=== PATIENT | male | born 1965 | race Caucasian/White ===

== ENCOUNTER 2023-09-13 11:30 | Emergency (ER) | payer OTHER, SELFPAY ==
--- NOTE | 2023-09-13 | CT_ITS ---
[address] [address] Patient Name: JERRELL MOORE MRN: [id number] date: 1965 Sex: M Assigned Patient Location: ER Current Patient Location: Accession/Order Number: [id number] Exam Date: 09/13/2023 13:45 Report Date: 09/13/2023 15:12 At the request of: CHARLI LOWE Procedure: CT abdomen pelvis w con EXAM: CT abdomen pelvis w con HISTORY: Abd pain. Colon cancer. Diarrhea for 3 days. COMPARISON: 01/13/2022. 03/14/2018. TECHNIQUE: Enhanced helical acquisition obtained through the abdomen and pelvis following the administration of oral and intravenous contrast. FINDINGS: Severe calcifications of the included right coronary artery. Minimal pulmonary scarring within the lung bases. The pleural spaces are clear. Unremarkable gallbladder. No significant biliary ductal dilatation. The liver, spleen, pancreas are unremarkable. Stable mild thickening of the bilateral adrenal glands which may be secondary to adrenal hyperplasia. Bilateral subcentimeter nonobstructing renal calculi. Moderate-severe atherosclerotic disease. Stable mild fusiform aneurysmal dilatation of the infrarenal abdominal aorta maximally measuring 3.1 cm in maximum diameter. No enlarged lymph nodes within the abdomen or the pelvis. Small volume of ascites within the abdomen and the pelvis. Scattered air-fluid levels are present within small and large bowel, compatible with the stated history of diarrhea. Diverticulosis without radiographic evidence of diverticulitis. Prior right hemicolectomy with intact ileocolonic anastomosis. No definite bowel obstruction. Mild mesenteric edema within the right mid abdomen. Prior L5-S1 PLIF. CT/CT abdomen pelvis w con IMPRESSION: 1. Scattered air-fluid levels throughout small and large bowel, compatible with the given clinical history of diarrhea. 2. Prior right hemicolectomy with intact ileocolonic anastomosis. No definite bowel obstruction. Mildly distended small bowel loops within the right mid abdomen with mild mesenteric edema, which may be secondary to an underlying mild infectious or inflammatory enteritis. 3. Small volume of ascites. 4. Bilateral subcentimeter nonobstructing renal calculi. Stable mild thickening of the adrenal glands which may be secondary to hyperplasia. 5. Severe calcifications of the partially visualized right coronary artery. Moderate-severe atherosclerotic disease with stable 3.1 cm infrarenal abdominal aortic aneurysm. Electronically authenticated by: HORACIO SALAZAR Date: 09/13/2023 15:12
[2023-09-13 11:36] VITALS: BP 123/77; PULSE 86; TEMP 36.8; O2SAT 99; BMI 27.4
--- NOTE | 2023-09-13 12:00 | ED.ABDPAIN1 ---
HPI - Abdominal Pain General Chief Complaint: Nausea/Vomiting/Diarrhea Stated Complaint: ABDOMINAL PAIN Time Seen by Provider: 09/13/23 11:54 Source: patient Mode of arrival: walk-in History of Present Illness HPI narrative: This for she is here for evaluation of abdominal cramping pain and diarrhea. He has had a lot of watery diarrhea for the last 3 days. He has not looked at it to see if was black or bloody. He has had previous colon resection for cancer at the [facility] in [facility]. He has not had his 1 year routine follow-up yet. Also last week he underwent coronary stenting in [place] and got another stent. Prior to that time he had had 2 or 3 previously. He is on Brilinta. He also thought that he had a kidney stone as all the symptoms started with left flank pain and now he has severe abdominal pain in addition to the diarrhea. He has intense nausea but no vomiting. He has not having a fever. He has not been on any recent antibiotics. He never had a colostomy at the time of the surgical incision. Related Data Home Medications ?Medication ?Instructions ?Recorded ?Confirmed albuterol sulfate 90 mcg/actuation 2 puff inhalation Q4H PRN 09/13/23 09/13/23 aerosol inhaler shortness of breath or wheezing amlodipine 5 mg tablet 5 mg PO DAILY 09/13/23 09/13/23 aspirin 81 mg tablet,delayed 81 mg PO DAILY 09/13/23 09/13/23 release (Adult Low Dose Aspirin) atorvastatin 40 mg tablet 40 mg PO QPM 09/13/23 09/13/23 carvedilol 25 mg tablet 25 mg PO BID 09/13/23 09/13/23 cyclobenzaprine 10 mg tablet 10 mg PO QPM PRN muscle spasm 09/13/23 09/13/23 lisinopril 40 mg tablet 40 mg PO QAM 09/13/23 09/13/23 pantoprazole 40 mg tablet,delayed 40 mg PO BID 09/13/23 09/13/23 release pramipexole 0.25 mg tablet 0.25 mg PO BID 09/13/23 09/13/23 sildenafil (pulm.hypertension) 20 40 mg PO DAILY PRN erectile 09/13/23 09/13/23 mg tablet dysfunction ticagrelor 90 mg tablet (Brilinta) 90 mg PO BID 09/13/23 09/13/23 vilazodone 40 mg tablet 40 mg PO DAILY 09/13/23 09/13/23 Allergies Allergy/AdvReac Type Severity Reaction Status Date / Time Penicillins Allergy Severe Verified 09/13/23 11:41 Exam Narrative Exam Narrative: Awake alert pleasant vital signs are normal. Does not have any chest discomfort but points to his periumbilical area as being uncomfortable. His skin is warm and dry his mucous membranes appear moist and pink. There is no scleral icterus or conjunctivitis. Examination abdomen is got normal bowel sounds there is diffuse tenderness throughout the periumbilical area. No rebound or rigidity. Incidentally he has been told that he also had diverticular disease previously. He has no respiratory distress. His pulse is regular. Does not have any discomfort in the lower extremities and his perfusion to lower limbs appears to be normal Constitutional Vital Signs, click to edit/add: Last Vital Signs Temp 98.2 F 09/13/23 11:36 Pulse 86 09/13/23 11:36 Resp 16 09/13/23 11:36 BP 123/77 09/13/23 11:36 Pulse Ox 99 09/13/23 11:36 O2 Del Method Room Air 09/13/23 11:36 Course Vital Signs Vital signs: Vital Signs Temperature 98.2 F 09/13/23 11:36 Pulse Rate 86 09/13/23 11:36 Respiratory Rate 16 09/13/23 11:36 Blood Pressure 123/77 09/13/23 11:36 Pulse Oximetry 99 09/13/23 11:36 Oxygen Delivery Method Room Air 09/13/23 11:36 Temperature 98.2 F 09/13/23 11:36 Pulse Rate 86 09/13/23 11:36 Respiratory Rate 16 09/13/23 11:36 Blood Pressure 123/77 09/13/23 11:36 Pulse Oximetry 99 09/13/23 11:36 Oxygen Delivery Method Room Air 09/13/23 11:36 MDM - Abdominal Pain MDM Narrative Medical decision making narrative: This patient presents with 3 days of diarrhea after having colon resection. I thought it would be important to image the abdomen and make sure he does not have a comorbidities or other complications of the surgical procedure. The CT scan report was read at 1535 hrs. and there is no acute findings. We went over the details of the CT with the patient. He is known to have infrarenal artery aneurysm. He also has had stents in his right coronary artery so none of this is new. The abdominal findings suggest gastroenteritis. He is now cleared to use limited doses of Imodium, stay hydrated with fluids. Discharge Plan Discharge Stand Alone Forms: Portal Instructions Chief Complaint: Nausea/Vomiting/Diarrhea Clinical Impression: Abdominal pain, acute Patient Disposition: Home, Self-Care Time of Disposition Decision: 15:40 Prescriptions / Home Meds: No Action albuterol sulfate 90 mcg/actuation HFA aerosol inhaler 2 puff INHALATION Q4H PRN (Reason: shortness of breath or wheezing) amlodipine 5 mg tablet 5 mg PO DAILY atorvastatin 40 mg tablet 40 mg PO QPM carvedilol 25 mg tablet 25 mg PO BID cyclobenzaprine 10 mg tablet 10 mg PO QPM PRN (Reason: muscle spasm) lisinopril 40 mg tablet 40 mg PO QAM pantoprazole 40 mg tablet,delayed release (DR/EC) 40 mg PO BID pramipexole 0.25 mg tablet 0.25 mg PO BID sildenafil (pulm.hypertension) 20 mg tablet 40 mg PO DAILY PRN (Reason: erectile dysfunction) Brilinta 90 mg tablet 90 mg PO BID vilazodone 40 mg tablet 40 mg PO DAILY aspirin [Adult Low Dose Aspirin] 81 mg tablet,delayed release (DR/EC) 81 mg PO DAILY Print Language: Kenyan Additional Instructions: A use [id number] Imodium for couple days. Continue clear fluids to this improves. Referrals: Physician,Non-Staff, MD [Primary Care Provider] - 1 week
[2023-09-13 12:28] VITALS: BP 128/88; PULSE 82; O2SAT 98
[2023-09-13 14:15] VITALS: BP 148/83; PULSE 88; O2SAT 98
== END 2023-09-13 15:49 | disposition home or self-care (01) ==
PROVIDERS: Emergency Provider Emergency Medicine Emergency Medical Services
DX: R10.9 Unspecified abdominal pain (principal); Z90.49 Acquired absence of other specified parts of digestive tract; Z85.038 Personal history of other malignant neoplasm of large intestine; Z95.5 Presence of coronary angioplasty implant and graft; Z79.82 Long term (current) use of aspirin; Z79.899 Other long term (current) drug therapy
CPT/HCPCS: 74177; 80053; 99285; Q9967

== ENCOUNTER 2024-08-04 12:39 | Outpatient (OUT) | payer OTHER, SELFPAY ==
--- NOTE | 2024-08-04 13:00 | XR_ITS ---
[facility] [place] [id number] Patient Name: JERRELL MOORE MRN: [id number] date: 1965 Sex: M Assigned Patient Location: LAB Current Patient Location: LAB Accession/Order Number: [id number] Exam Date: 08/04/2024 17:06 Report Date: 08/04/2024 17:07 At the request of: CHASE VIZCARRA MD Procedure: XR lumbar spine min 4V LUMBAR SPINE - 4 views CLINICAL HISTORY: Chronic Bilateral Low Back Pain With Sciatica COMPARISON: None FINDINGS: Posterior hardware fixation L5-S1 without evidence of hardware complication. Vertebral body heights appear maintained. No significant disc height loss is present. Endplate and facet joint degenerative changes are seen. SI joints demonstrate degenerative change. XR/XR lumbar spine min 4V IMPRESSION: NO HARDWARE COMPLICATION. DEGENERATIVE CHANGES INVOLVING THE ENDPLATES AND SI JOINTS WITHOUT SIGNIFICANT DISC HEIGHT LOSS. Impression dictated by: Luis Rosenthal Jr., D.O.08/04/2024 5:07 PM Dictation Location: [employer] Electronically authenticated by: [id number] Y Date: 08/04/2024 17:07
[2024-08-04 13:38] LABS: Alanine Aminotransferase 45 U/L (16-63); Albumin Level 3.6 g/dL (3.4-5.0); Alkaline Phosphatase 102 U/L (46-116); Anion Gap 10.5; Aspartate Amino Transferase 23 U/L (15-37); BUN Creatinine Ratio 18.4; Bilirubin Total 0.7 mg/dL (0.2-1.0); Calcium 9.1 mg/dL (8.5-10.1); Carbon Dioxide 28.3 mmol/L (21.0-32.0); Chloride 105 mmol/L (98-107); Chol HDL Ratio 3.8; Cholesterol 158 mg/dL (<=200); Estimated GFR (African America >60 (>=60 mL/min/1.73m^2); Estimated GFR (Non-African Ame >60 (>=60 mL/min/1.73m^2); Globulin 3.6 g/dL; Glucose 84 mg/dL (74-106); HDL Cholesterol 42 mg/dL (40-60); LDL Cholesterol Calculated 90.6 mg/dL; Potassium 3.8 mmol/L (3.5-5.1); Sodium 140 mmol/L (136-145); TSH W/ REFLEX FT4 1.431 uIU/mL (0.358-3.740); Total Protein 7.2 g/dL (6.4-8.2); Triglycerides 127 mg/dL (<=150); VLDL CHOLESTEROL 25.4 mg/dL
== END 2024-08-04 12:40 | disposition home or self-care (01) ==
LOC: LAB 12:43
PROVIDERS: PCP Student in an Organized Health Care Education/Training Program; Visit Provider Student in an Organized Health Care Education/Training Program
DX: M54.42 Lumbago with sciatica, left side (principal); M54.41 Lumbago with sciatica, right side; G89.29 Other chronic pain; I25.118 Atherosclerotic heart disease of native coronary artery with other forms of angina pectoris
CPT/HCPCS: 36415; 72110; 80053; 80061; 84443

== ENCOUNTER 2024-12-01 14:30 | Outpatient (OUT) | payer OTHER, SELFPAY ==
--- OUTSIDE RECORDS SUMMARY | 2024-11-19 14:00 | XMS_ITS | Encounter Summary ---
Author Organization [facility] Address [address] [place] [address] Care Team Providers Care Tap Out Operator Name Role Phone Tashalamar Yamilkatani Lacy DO Primary Care Provider [phone] Reason for Visit * Reason Comments Leg Swelling Bilateral leg swelli ng and pain started 7 months ago. Encounter Details Date Type Department Care Team (Late st Contact Info) Description 11/19/2024 2:00 PM EDT Office [place] [facility] [place] [address] [place] [address] Montez Alexander DO [address] [place] [address] Bilateral lower extremity edema (Primary Dx); Venous stasis of both lower extremities; Hemangioma of skin Social History Tobacco Use Types Packs/Day Years Used Date Smoking Tobacco: Every Day Cigarettes 1 15 Smokeless Tobacco: Never Tobacco Cessation:Ready to Q uit: Not Asked; Counseling Given: Not Answered Alcohol Use Standard Drinks/Week Comments Yes 0 (1 standard drink = 0.6 oz pur e alcohol) [facility] Utilities Answer Date Recorded In the past 12 months has [employer], gas, oil, or water company threatened to shut off services in your home? No 07/28/2024 AUDIT-C Answer Date Recorded Q1: How often do you have a drink containing alc ohol? Monthly or less 07/28/2024 Q2: How many drinks containi ng alcohol do you have on a typical day when you are drinking? 1 or 2 07/28/2024 Q3: How often do you have si x or more drinks on one occasion? Never 07/28/2024 Overall Financial Resource Strain (CARDIA) Answe r Date Recorded How hard is it for you to pa y for the very basics like food, housing, medical care, and heating? Not hard at all 07/20/2023 PHQ-2 Answer Date Recorded PHQ-9 Total Score 0 07/28/2024 Exercise Vital Sign Answer Date Recorde d On average, how many days pe r week do you engage in moderate to strenuous exercise (like a brisk walk)? 4 days 07/28/2024 On average, how many minutes do you engage in exercise at this level? 60 min 07/28/2024 Hunger Vital Sign Answer Date Recorded Within the past 12 months, y ou worried that your food would run out before you got the money to buy more. Never true 07/28/19 25 Within the past 12 months, t he food you bought just didn't last and you didn't have money to get more. Never true 07/28/2024 PRAPARE - Transportation Answer Date Re corded In the past 12 months, has l ack of transportation kept you from medical appointments or from getting medications? No 07/06 In the past 12 months, has l ack of transportation kept you from meetings, work, or from getting things needed for daily living? No 07/28/2024 Housing Stability Vital Sign Answer Bk e Recorded Unable to Pay for Housing in the Last Year Not o n file 07/20/2023 Number of Places Lived in the Last Year Not on f ile 07/20/2023 In the last 12 months, was t here a time when you did not have a steady place to sleep or slept in a alf (including now)? No 07/20/2023 Housing Stability Vital Sign Answer Bk e Recorded In the last 12 months, was t here a time when you were not able to pay the mortgage or rent on time? No 07/28/2024 In the past 12 months, how m any times have you moved where you were living? 0 07/28/2024 At any time in the past 12 m [facility], were you homeless or living in a alf (including now)? No 07/28/2024 Food Insecurity Answer Date Recorded Within the past 12 months, y ou worried that your food would run out before you got the money to buy more. 1 07/28/2024 Within the past 12 months, t he food you bought just didn't last and you didn't have money to get more. 1 07/28/2024 Sex and Gender Information Value Date Recorded Sex Assigned at Not on file Legal Sex Male 10:06 AM EST Gender Identity Not on file Sexual Orientation Not on file documented as of this encounter Last Filed Vital Signs Vital Sign Reading Time Taken Comments Blood Pressure 146/80 11/19/2024 2:03 PM EDT Pulse 85 11/19/2024 2:03 PM EDT Temperature - - Respiratory Rate - - Oxygen Saturation 96% 11/19/2024 2:03 PM EDT Inhaled Oxygen Concentration - - Weight 82.6 kg (182 lb) 11/19/2024 2:03 PM EDT Height - - Body Mass Index 28.5 08/20/2024 1:22 PM EDT documented in this encounter Patient Instructions * Patient Instructions* Hailey May LPN - 11/19/2024 2:06 PM EDT SURVEY: You may be receiving a survey from [place] [facility] regarding your visit today. You may get this in the mail, through your MyChart or in your email. Please complete the survey to enable us to provide the highest quality of care to you and your family. If you cannot score us as very good ( 5 Stars) on any question, please feel free to call the officeto discuss how we could have made your experience exceptional. Thank you. Clinical Care Team: Dr. Montez Alexander, DO Hailey May LPN Triage: Lottie Sow CMA Clerical Team: Lottie Huerta documented in this encounter Progress Notes * Yamilka Thomas DO - 11/20/2024 8:06 AM EDT Olu Vanegas! I believe this is the site where I actually had previously tried to remove a suspected foreign body and wasn't successful. So I would recommend he see a surgeon about it. Thanks! Yamilka * Montez Alexander DO - 11/19/2024 2:03 PM EDT Images from the original note were not included. HPI Notes Name: Homero Rodrigues : 1965 Chief Complaint: Chief Complaint Patient presents with Leg Swelling Bilateral leg swelling and pain started 7 months ago. History of Present Illness: HPI This is a 59-year-old man with a history of coronary artery disease, hypertension, presenting for bilateral lower extremity edema and pain which began around 7 months ago. He had been prescribed furosemide 20 mg p.o. daily as needed for swelling but reports this had not not made much appreciable dif ference over the past several months. He did call his early childhood specialist yesterday and they have ordered outpatient labs. Homero notes that this swelling is not present upon awakening in the morning and does worsen throughout the day the more he stands (works at [employer] about 5 hours at a time). He also notes that the shins have been somewhat discolored and darker as of late. He also notes a sensitive and mildly painful lesion of the skin of the right forearm. This has beenpresent for over a year and he is desiring it to be removed as it bothers him when something touches it. It has not bled. Past Medical History: Past Medical History: Diagnosis Date Anxiety Chronic back pain Colon cancer (HCC) 10/25/2022 Depression Erectile dysfunction Heart attack (HCC) 2015 Stent placement Hypertension Osteoarthritis Restless legs syndrome Sleep apnea Reviewed all health maintenance requirements and ordered appropriate tests Health Maintenance Due Topic Date Due HIV screen Never done Hepatitis C screen Never done Hepatitis B vaccine (1 of 3 - 19+ 3-dose series) Never done Pneumococcal 50+ years Vaccine (1 of 2 - PCV) Never done Shingles vaccine (1 of 2) Never done COVID-19 Vaccine (2023- season) 2024 Past Surgical History: Past Surgical History: Procedure Laterality Date COLECTOMY 10/25/2022 partial LUMBAR FUSION 2009 L5 SUBTOTAL COLECTOMY Medications: Prior to Admission medications Medication Sig Start Date End Date Taking? Authorizing Provider cyclobenzaprine (FLEXERIL) 10 MG tablet TAKE 1 TABLET BY MOUTH EVERY NIGHT NEEDED FOR MUSCLE SPASM 09/15/24 Yes Maria G Montana MD vilazodone HCl (VIIBRYD) 20 MG TABS TAKE 1 TABLET BY MOUTH EVERY DAY 09/15/24 Yes Maria G Montana MD pantoprazole (PROTONIX) 40 MG tablet TAKE 1 TABLET BY MOUTH TWICE A DAY 09/01/24 Yes Tiago Thomas DO furosemide (LASIX) 20 MG tablet TAKE 1 TABLET BY MOUTH DAILY NEEDED (SWELLING). 09/01/24 Yes Yamilka Thomas DO sildenafil (REVATIO) 20 MG tablet TAKE 3 TO 5 TABLETS BY MOUTH DAILY NEEDED FOR E.D. 08/25/24 Yamilka Lima DO atorvastatin (LIPITOR) 40 MG tablet Take 1 tablet by mouth nightly 08/22/24 Yes Yamilka Thomas DO pramipexole (MIRAPEX) 0.75 MG tablet TAKE 1-2 TABLETS BY MOUTH 2-3 HOURS BEFORE BEDTIME 08/20/24 Yamilka Lima DO valsartan (DIOVAN) 160 MG tablet Take 1 tablet by mouth daily 07/16/24 07/16/25 Yes ProviderChad MD KLOR-CON M20 20 MEQ extended release tablet TAKE 1 TABLET BY MOUTH EVERY DAY 04/07/24 Yes Yamilka Thomas DO amLODIPine (NORVASC) 5 MG tablet Take 1 tablet by mouth daily 11/18/23 Yes ProviderChad MD clopidogrel (PLAVIX) 75 MG tablet Take 1 tablet by mouth daily 11/24/23 Yes ProviderChad MD albuterol sulfate HFA (PROVENTIL;VENTOLIN;PROAIR) 108 (90 Base) MCG/ACT inhaler INHALE 2 PUFFS BY MOUTH EVERY 4 HOURS NEEDED FOR SHORTNESS OF BREATH 07/16/23 Yes Yamilka Thomas DO carvedilol (COREG) 25 MG tablet TAKE 1 TABLET BY MOUTH TWICE A DAY 01/04/21 Yes ProviderChad MD nitroGLYCERIN (NITROSTAT) 0.[address] 1 tablet under the tongue 09/26/13 Yes Provider, MD Chad clonazePAM (KLONOPIN) 0.5 MG tablet Take 1-2 tablets by mouth nightly as needed (restless legs) forup to 90 days. Max Daily Amount: 1 mg 08/20/24 11/18/24 Yamilka Thomas DO Allergies: Levofloxacin and Penicillins Social History: Tobacco: reports that he has been smoking cigarettes. He has a 15 pack-year smoking history. He hasnever used smokeless tobacco. Alcohol: reports current alcohol use. Drug Use: reports no history of drug use. Family History: Family History Problem Relation Age of Onset Heart Attack Mother Cancer Father colon Heart Attack Father Colon Cancer Sister Review of Systems: Review of Systems Constitutional: Negative for fever. HENT: Negative for sinus pain, sneezing and sore throat. Respiratory: Negative for cough and wheezing. Cardiovascular: Positive for leg swelling. Negative for chest pain. Gastrointestinal: Negative for abdominal pain, diarrhea, nausea and vomiting. Genitourinary: Negative for difficulty urinating, dysuria and penile discharge. Musculoskeletal: Negative for back pain. Skin: Negative for rash. +lesion per HPI Hematological: Negative for adenopathy. Psychiatric/Behavioral: Negative for sleep disturbance. Physical Exam: Vitals: BP (!) 146/80 Pulse 85 Wt 82.6 kg (182 lb) SpO2 96% BMI 28.50 kg/m?? Physical Exam Vitals and nursing note reviewed. Constitutional: General: He is not in acute distress. Appearance: Normal appearance. Musculoskeletal: General: Swelling present. No tenderness. Normal range of motion. Comments: Trace nonpitting edema bilaterally of the lower extremities Skin: General: Skin is warm and dry. Capillary Refill: Capillary refill takes less than 2 seconds. Comments: Brawny skin discoloration of the anterior tibiae Right forearm: 3 mm round, soft, bluish subcutaneous lesion which is mildly uncomfortable to palpate Neurological: General: No focal deficit present. Mental Status: He is alert and oriented to person, place, and time. Mental status is at baseline. Psychiatric: Mood and Affect: Mood normal. Behavior: Behavior normal. Thought Content: Thought content normal. Data: Lab Results Component Value Date/Time NA 140 08/04/2024 12:00 AM K 3.8 08/04/2024 12:00 AM CL 105 08/04/2024 12:00 AM CO2 28.3 08/04/2024 12:00 AM BUN 16 09/17/2024 01:24 PM CREATININE 0.8 09/17/2024 01:24 PM GLUCOSE 84 08/04/2024 12:00 AM BILITOT 0.7 08/04/2024 12:00 AM ALKPHOS 102 08/04/2024 12:00 AM AST 23 08/04/2024 12:00 AM ALT 45 08/04/2024 12:00 AM Lab Results Component Value Date/Time WBC 9.2 02/19/2024 04:55 PM RBC 4.58 02/19/2024 04:55 PM HGB 14.5 02/19/2024 04:55 PM HCT 41.9 02/19/2024 04:55 PM MCV 91.5 02/19/2024 04:55 PM MCH 31.7 02/19/2024 04:55 PM MCHC 34.6 02/19/2024 04:55 PM RDW 12.2 02/19/2024 04:55 PM PLT 246 02/19/2024 04:55 PM MPV 9.1 02/19/2024 04:55 PM Lab Results Component Value Date/Time TSH 1.431 08/04/2024 12:00 AM Lab Results Component Value Date/Time CHOL 158 08/04/2024 12:00 AM LDL 90.6 08/04/2024 12:00 AM HDL 42 08/04/2024 12:00 AM Assessment & Plan Diagnosis Orders 1. Bilateral lower extremity edema 2. Venous stasis of both lower extremities Based on history and PE I believe this to be venous stasis disease. His DP pulse is quite strong and he still has hair growth on the toes and no Hx claudication with activity. I recommend continuing qD furosemide but adding compression garments to be worn during the day. We may not need to increaselasix with this change. Follow up in 4 weeks for this problem 3. This appears to be a small hemangioma; I do not feel comfortable excising this lesion today. I recommended he see dermatology as laser removal might be warranted, but he would like to defer that referral to speak with Dr. Thomas Completed Refills Requested Prescriptions No prescriptions requested or ordered in this encounter No follow-ups on file. No orders of the defined types were placed in this encounter. No orders of the defined types were placed in this encounter. Patient Instructions SURVEY: You may be receiving a survey from [place] Blakelamar regarding your visit today. You may get this in the mail, through your MyChart or in your email. Please complete the survey to enable us to provide the highest quality of care to you and your family. If you cannot score us as very good ( 5 Stars) on any question, please feel free to call the officeto discuss how we could have made your experience exceptional. Thank you. Clinical Care Team: DO Hailey Perez LPN Triage: Lottie Sow CMA Clerical Team: Lottie Huerta Completed Refills Requested Prescriptions No prescriptions requested or ordered in this encounter documented in this encounter Plan of Treatment Not on file documented as of this encounter Visit Diagnoses Diagnosis Bilateral lower extremity edema- Primary Edema Venous stasis of both lower extremities Hemangioma of skin Hemangioma of skin and subcutaneous tissue documented in this encounter Additional Health Concerns Assessment Noted Time A fall risk assessment has been complete d for the patient 07/28/2024 1:23 PM EST documented as of this encounter Care Teams Tap Out Operator Relationship Specialty Start Date End Date Yamilka Thomas DO [address] [place] [address] PCP - General Family Medicine 02/27/18 documented as of this encounter
--- OUTSIDE RECORDS SUMMARY | 2024-12-01 14:34 | XMS_ITS | Encounter Summary ---
Author Organization [facility] Address [address] [place] [address] Care Team Providers Care Supervisor Dimension Warehouse Name Role Phone Yamilka Thomas DO Primary Care Provider [phone] Reason for Visit * Reason Comments Medication Refill Encounter Details Date Type Department Care Team (Late st Contact Info) Description 01/03/2020 Refill [facility] [address] [place] [address] Yamilka Thomas DO [address] [place] [address] Medication Refill Social History Tobacco Use Types Packs/Day Years Used Date Smoking Tobacco: Every Day Cigarettes Smokeless Tobacco: Never Alcohol Use Standard Drinks/Week Comments No 0 (1 standard drink = 0.6 oz pur e alcohol) Overall Financial Resource Strain (CARDIA) Answe r Date Recorded Difficulty of Paying Living Expenses Not hard at all 10/21/2019 PHQ-2 Answer Date Recorded PHQ-2 Score 0 04/14/2019 Hunger Vital Sign Answer Date Recorded Worried About Running Out of Food in the Last Ye ar Never true 10/21/2019 Ran Out of Food in the Last Year Never true 10/21/2019 Sex and Gender Information Value Date Recorded Sex Assigned at Not on file Legal Sex Male 10:06 AM EST Gender Identity Not on file Sexual Orientation Not on file documented as of this encounter Plan of Treatment Not on file documented as of this encounter Visit Diagnoses Not on filedocumented in this encounter Care Teams Supervisor Dimension Warehouse Relationship Specialty Start Date End Date Yamilka Thomas DO [address] [place] [address] PCP - General Family Medicine 02/27/18 documented as of this encounter
--- OUTSIDE RECORDS SUMMARY | 2024-12-01 14:34 | XMS_ITS | Encounter Summary ---
Author Organization [facility] Address [address] [place] [address] Care Team Providers Care Elementary School Band Director Name Role Phone Sivakumar Beatty DO Primary Care Provider Giovanni Calvert MD Unavailable [phone] Yamilka Thomas MD Primary Care Provider + [phone] Juanis Dasilva RN Unavailable Unavailable Yusef Haynes MD Unavailable [phone] Yamilka Thomas MD Unavailable [phone] Source Comments In the event this information is protected by the Federal Confidentiality of Alcohol and Drug AbusePatient Records regulations: The Federal rules restrict any use of the information to criminally investigate or prosecute any alcohol or drug abuse patient.[facility] Encounter Details Date Type Department Care Team (Late st Contact Info) Description 09/08/2022 Patient Msg Pre Anesthesia [address] [place] [address] Provider, Ccf PACC Appointment Social History Tobacco Use Types Packs/Day Years Used Date Smoking Tobacco: Every Day Cigarettes 0.5 20 Alcohol Use Standard Drinks/Week Comments Yes 4 (1 standard drink = 0.6 oz pur e alcohol) Area Deprivation Index Answer Date Tobias rded National Score (1-100), lower number is lower ri sk 70 09/07/2022 State Score (1-10), lower number is lower risk N ot on file 09/07/2022 Data from: https://www.neighborhoodatlas.medicine.[facility]/. Last address used for calculation [address] 09/07/2022 Sex and Gender Information Value Date Recorded Sex Assigned at Not on file Legal Sex Male 8:10 AM EDT Gender Identity Not on file Sexual Orientation Not on file Occupation Industry Job Start Date Job End Date unemployed Not on file Not on file Not on file documented as of this encounter Functional Status * Are you deaf or do you have serious difficulty hearing? Answer Date of Assessment Author No 11/03/2014 9:10 AM EDT Tish Martinez Ma * Are you blind or do you have serious difficulty seeing, even when wearing glasses? Answer Date of Assessment Author No 11/03/2014 9:10 AM EDT Tish Martinez Ma * Do you have serious difficulty walking or climbing stairs? Answer Date of Assessment Author Yes 11/03/2014 9:10 AM EDT Tish Martinez Ma * Do you have difficulty dressing or bathing? Answer Date of Assessment Author No 11/03/2014 9:10 AM EDT Tish Martinez Ma * Because of a physical, mental, or emotional condition, do you have difficulty doing errands alone such as visiting a doctor's office or shopping? Answer Date of Assessment Author No 11/03/2014 9:10 AM EDT Tish Martinez Ma documented as of this encounter Mental Status * Because of a physical, mental, or emotional condition, do you have serious difficulty concentrating, remembering, or making decisions? Answer Entry Date Author No 11/03/2014 9:10 AM KALET Tish Martinez Ma documented in this encounter Plan of Treatment Not on file documented as of this encounter Visit Diagnoses Not on filedocumented in this encounter Care Teams Elementary School Band Director Relationship Specialty Start Date End Date Sivakumar Beatty DO PCP - General Family Medicine 11/03/14 09/13/22 Yamilka Thomas MD [address] [place] [address] PCP - General Family Medicine 09/14/22 Giovanni Calvert MD [address] [facility] [address] [place] [address] Primary Staff Physician Cardiology 08/20/18 Juanis Dasilva, RN Specialty Editor In Chief Colon and Rectal Surgery 10/02/22 10/03/27 Yusef Haynes MD [address] [place] [address] [place] [address] Hematology/Oncology 11/14/22 Yamilka Thomas MD [address] [place] [address] Referring Family Medicine 09/25/24 documented as of this encounter
--- OUTSIDE RECORDS SUMMARY | 2024-12-01 14:34 | XMS_ITS | Encounter Summary ---
Author Organization [facility] Address [address] [place] [address] Care Team Providers Care Incinerator Plant Laborer Name Role Phone Giovanni Calvert MD Unavailable [phone] Yamilka Thomas MD Primary Care Provider + [phone] Juanis Dasilva RN Unavailable Unavailable Yusef Haynes MD Unavailable [phone] Yamilka Thomas MD Unavailable [phone] Source Comments In the event this information is protected by the Federal Confidentiality of Alcohol and Drug AbusePatient Records regulations: The Federal rules restrict any use of the information to criminally investigate or prosecute any alcohol or drug abuse patient.[facility] Encounter Details Date Type Department Care Team (Late st Contact Info) Description 09/25/2024 Patient Msg Referring Physician [address] [place] [address] Provider, Ccf Appointment Social History Tobacco Use Types Packs/Day Years Used Date Smoking Tobacco: Former Cigarettes 1 38.5 S tarted: 1986 Smokeless Tobacco: Former Alcohol Use Standard Drinks/Week Comments Not Currently 0 (1 standard drink = 0.6 oz pur e alcohol) 4 drinks per week. Area Deprivation Index Answer Date Tobias rded National Score (1-100), lower number is lower ri sk 79 10/11/2022 State Score (1-10), lower number is lower risk 7 10/11/2022 Data from: https://www.neighborhoodatlas.medicine.[facility].edu/. Last address used for calculation [address] 10/11/2022 Sex and Gender Information Value Date Recorded [...] hearing? Answer Date of Assessment Author No 10/27/2022 10:05 AM Heather Mcmillan RN * Are you blind or do you have serious difficulty seeing, even when wearing glasses? Answer Date of Assessment Author No 10/27/2022 10:05 AM Heather Mcmillan RN * Do you have serious difficulty walking or climbing stairs? Answer Date of Assessment Author No 10/27/2022 10:05 AM Heather Mcmillan RN * Do you have difficulty dressing or bathing? Answer Date of Assessment Author No 10/27/2022 10:05 AM Heather Mcmillan RN * Because of a physical, mental, or emotional condition, do you have difficulty doing errands alone such as visiting a doctor's office or shopping? Answer Date of Assessment Author No 10/27/2022 10:05 AM Heather Mcmillan RN documented as of this encounter Mental Status * Because of a physical, mental, or emotional condition, do you have serious difficulty concentrating, remembering, or making decisions? Answer Entry Date Author No 10/27/2022 10:05 AM Heather Mcmillan RN documented in this encounter Plan of Treatment Not on file documented as of this encounter Visit Diagnoses Not on filedocumented in this encounter Care Teams Incinerator Plant Laborer Relationship Specialty Start Date End Date Yamilka Thomas MD [address] [place] [address] PCP - General Family Medicine 09/14/22 Giovanni Calvert MD [address] [facility] [address] [place] [address] Primary Staff Physician Cardiology 08/20/18 Juanis Dasilva, RN Specialty Senior Technical Project Manager Colon and Rectal Surgery 10/02/22 10/03/27 Yusef Haynes MD [address] [place] [address] [place] [address] Hematology/Oncology 11/14/22 Yamilka Thomas MD [address] [place] [address] Referring Family Medicine 09/25/24 documented as of this encounter
--- OUTSIDE RECORDS SUMMARY | 2024-12-01 14:34 | XMS_ITS | Encounter Summary ---
Author Organization [facility] Address [address] [place] [address] Care Team Providers Care Relief Salesperson Name Role Phone Giovanni Calvert MD Unavailable [phone] Yamilka Thomas MD Primary Care Provider + [phone] Juanis Dasilva RN Unavailable Unavailable Yusef Haynes MD Unavailable [phone] Yamilka Thomas MD Unavailable [phone] Source Comments In the event this information is protected by the Federal Confidentiality of Alcohol and Drug AbusePatient Records regulations: The Federal rules restrict any use of the information to criminally investigate or prosecute any alcohol or drug abuse patient.[facility] Encounter Details Date Type Department Care Team (Late st Contact Info) Description 09/25/2024 Abstract Neurology [address] [id number] (Hist), Unk Pcp Social History Tobacco Use Types Packs/Day Years [...] is lower risk 7 10/11/2022 Data from: https://www.neighborhoodatlas.medicine.[facility].edu/. Last address used for calculation [address] [...] of Assessment Author No 10/27/2022 10:05 AM EDT Heather Villanueva RN * Do you have difficulty dressing or bathing? Answer Date of Assessment Author No 10/27/2022 10:05 AM KALET Heather Villanueva RN * Because of a physical, mental, [...] on filedocumented in this encounter Care Teams Relief Salesperson Relationship Specialty Start Date End Date Yamilka Thomas MD [address] [place] [address] PCP - General Family Medicine 09/14/22 Giovanni Calvert MD [address] [facility] [address] [place] [address] Primary Staff Physician Cardiology 08/20/18 Juanis Dasilva, RN Specialty Operational Intelligence Analyst Colon and Rectal Surgery 10/02/22 10/03/27 Yusef Haynes MD [address] [place] [address] [place] [address] Hematology/Oncology 11/14/22 Yamilka Thomas MD [address] [place] [address] Referring Family Medicine 09/25/24 documented as of this encounter
--- OUTSIDE RECORDS SUMMARY | 2024-12-01 14:34 | XMS_ITS | Encounter Summary ---
Author Organization [facility] Address [address] [place], [place] [id number] Care Team Providers Care Mat Repairer Name Role Phone Uli Garcia Jr. Primary Care Provider Unava ilable Juan Solorzano Unavailable Sivakumar Beatty DO Primary Care Provider Giovanni Calvert MD Unavailable [phone] Giovanni Calvert MD Unavailable [phone] Yamilka Thomas MD Primary Care Provider + [phone] Juanis Dasilva RN Unavailable Unavailable Yusef Haynes MD Unavailable [phone] Yamilka Thomas MD Unavailable [phone] Source Comments In the event this information is protected by the Federal Confidentiality of Alcohol and Drug AbusePatient Records regulations: The Federal rules restrict any use of the information to criminally investigate or prosecute any alcohol or drug abuse patient.[facility] Encounter Details Date Type Department Care Team (Late st Contact Info) Description 09/19/2013 Abstract Cardiology [address] [id number] Juan Solorzano [address] [place] [address] Social History Tobacco Use Types Packs/Day Years Used Date Smoking Tobacco: Never Assessed Sex and Gender Information Value Date Recorded Sex Assigned at Not on file Legal Sex Male 8:10 AM EDT Gender Identity Not on file Sexual Orientation Not on file documented as of this encounter Plan of Treatment Not on file documented as of this encounter Visit Diagnoses Not on filedocumented in this encounter Care Teams Mat Repairer Relationship Specialty Start Date End Date Uli Garcia Jr. PCP - General Family Medicine 09/15/13 11/02/14 Sivakumar Beatty DO PCP - General Family Medicine 11/03/14 09/13/22 Yamilka Thomas MD [address] [place] [address] PCP - General Family Medicine 09/14/22 Juan Solorzano Primary Staff Physician Cardiology 09/02/14 6 Giovanni Calvert MD [address] [facility] [address] [place] [address] Primary Staff Physician Cardiology 08/20/1808/20 Giovanni Calvert MD [address] [facility] [address] [place] [address] Primary Staff Physician Cardiology 08/20/18 Juanis Dasilva, RN Specialty Water Pollution Control Technician Colon and Rectal Surgery 10/02/22 10/03/27 Yusef Haynes MD [address] [place] [address] [place] [address] Hematology/Oncology 11/14/22 Yamilka Thomas MD [address] [place] [address] Referring Family Medicine 09/25/24 documented as of this encounter
--- OUTSIDE RECORDS SUMMARY | 2024-12-01 14:34 | XMS_ITS | Encounter Summary ---
Author Organization [facility] Address [address] [place] [address] Care Team Providers Care Assessment Expert Name Role Phone Sivakumar Beatty DO Primary Care Provider Giovanni Calvert MD Unavailable [phone] Yamilka Thomas MD Primary Care Provider + [phone] Juanis Dasilva RN Unavailable Unavailable Yusef Haynes MD Unavailable [phone] Yamilka Thomas MD Unavailable [phone] Source Comments In the event this information is protected by the Federal Confidentiality of Alcohol and Drug AbusePatient Records regulations: The Federal rules restrict any use of the information to criminally investigate or prosecute any alcohol or drug abuse patient.[facility] Encounter Details Date Type Department Care Team (Late st Contact Info) Description 09/07/2022 Patient Msg Colorectal Surgery [address] [place] [address] Provider, Ccf CT scan and genetics Social History Tobacco Use Types Packs/Day Years [...] N ot on file 09/07/2022 Data from: https://www.neighborhoodatlas.medicine.[facility]/. Last address used for calculation [address] [...] on filedocumented in this encounter Care Teams Assessment Expert Relationship Specialty Start Date End Date Sivakumar Beatty DO PCP - General Family Medicine 11/03/14 09/13/22 Yamilka Thomas MD [address] [place] [address] PCP - General Family Medicine 09/14/22 Giovanni Calvert MD [address] [facility] [address] [place] [address] Primary Staff Physician Cardiology 08/20/18 Juanis Dasilva, RN Specialty Final Inspector And Tester Colon and Rectal Surgery 10/02/22 10/03/27 Yusef Haynes MD [address] [place] [address] [place] [address] Hematology/Oncology 11/14/22 Yamilka Thomas MD [address] [place] [address] Referring Family Medicine 09/25/24 documented as of this encounter
--- OUTSIDE RECORDS SUMMARY | 2024-12-01 14:34 | XMS_ITS | Encounter Summary ---
Author Organization [facility] Address [address] [place] [address] Care Team Providers Care Fire Code Inspector Name Role Phone Giovanni Calvert MD Unavailable [phone] Yamilka Thomas MD Primary Care Provider + [phone] Juanis Dasilva RN Unavailable Unavailable Yusef Haynes MD Unavailable [phone] Yamilka Thomas MD Unavailable [phone] Source Comments In the event this information is protected by the Federal Confidentiality of Alcohol and Drug AbusePatient Records regulations: The Federal rules restrict any use of the information to criminally investigate or prosecute any alcohol or drug abuse patient.[facility] Encounter Details Date Type Department Care Team (Late st Contact Info) Description 10/16/2022 GI Preprocedure Call [facility] Surgery [address] [facility] [place] [address] Yamilka Thomas MD [address] [place] [address] Social History Tobacco Use Types Packs/Day Years Used Date Smoking Tobacco: Every Day Cigarettes 1 38.5 Started: 1986 Smokeless Tobacco: Former Alcohol Use Standard Drinks/Week Comments Not Currently 0 (1 standard drink = 0.6 oz pur e alcohol) 4 drinks per week. Area Deprivation Index Answer Date Tobias rded National Score (1-100), lower number is lower ri sk 79 10/11/2022 State Score (1-10), lower number is lower risk 7 10/11/2022 Data from: https://www.neighborhoodatlas.medicine.[facility]/. Last address used for calculation [address] [...] of Assessment Author No 11/03/2014 9:10 AM Tish Carlos Ma * Are you blind or do you have serious difficulty seeing, even when wearing glasses? Answer Date of Assessment Author No 11/03/2014 9:10 AM Tish Carlos Ma * Do you have serious difficulty walking or climbing stairs? Answer Date of Assessment Author Yes 11/03/2014 9:10 AM Tish Carlos Ma * Do you have difficulty dressing or bathing? Answer Date of Assessment Author No 11/03/2014 9:10 AM Tish Carlos Ma * Because of a physical, mental, or emotional condition, do you have difficulty doing errands alone such as visiting a doctor's office or shopping? Answer Date of Assessment Author No 11/03/2014 9:10 AM Tish Carlos Ma documented as of this encounter Mental Status * Because of a physical, mental, or emotional condition, do you have serious difficulty concentrating, remembering, or making decisions? Answer Entry Date Author No 11/03/2014 9:10 AM Tish Carlos Ma documented in this encounter Plan of Treatment Not on file documented as of this encounter Visit Diagnoses Not on filedocumented in this encounter Care Teams Fire Code Inspector Relationship Specialty Start Date End Date Yamilka Thomas MD [address] [place] [address] PCP - General Family Medicine 09/14/22 Giovanni Calvert MD [address] [phone] Primary Staff Physician Cardiology 08/20/18 Juanis Dasilva, RN Specialty Nursing Aide Colon and Rectal Surgery 10/02/22 10/03/27 Yusef Haynes MD [address] [place] [address] [place] [address] Hematology/Oncology 11/14/22 Yamilka Thomas MD [address] [place] [address] Referring Family Medicine 09/25/24 documented as of this encounter
--- OUTSIDE RECORDS SUMMARY | 2024-12-01 14:34 | XMS_ITS | Clinical Summary ---
Author Organization Active DSP s tem Address [facility] [address] [place] [address] Care Team Providers Care Double Backer Name Role Phone Yamilka Thomas Primary Care Provider Allergies Active Allergy Reactions Criticality Noted Date Comments Penicillins Hives 09/24/2013 Medications amLODIPine (NORVASC) 2.5 mg tablet Take 1 tablet (2.5 mg total) by mouth in the morning. 2 Active atorvastatin (LIPITOR) 40 mg tablet TAKE 1 TABLET BY MOUTH EVERYDAY AT BEDTIME 2 Active carvediloL (COREG) 25 mg tablet 2 Active lisinopriL (PRINIVIL,ZESTR IL) 40 mg tablet Take 1 tablet (40 mg total) by mouth in the morning. 2 Active pantoprazole (PROTONIX) 40 mg EC tablet 2 Active pramipexole (MIRAPEX) 0.25 mg tablet 2 Active vilazodone (VIIBRYD) 20 mg tablet Take 1 tablet (20 mg total) by mouth in the morning. 2 Active albuterol (PROVENTIL HFA;VENTOLIN HFA) 90 mcg/actuation inhaler INHALE 2 PUFFS BY MOUTH EVERY 4 HOURS NEEDED FOR SHORTNESS OF BREATH 2 Active cyclobenzaprine (FLEXERIL) 10 mg tablet TAKE 1 TABLET BY MOUTH EVERY NIGHT NEEDED FOR MUSCLE SPASM 2 Active aspirin 325 mg tablet Take 1 tablet (325 mg total) by mouth in the morning. 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 Lumbar spondylosis 03/29/2022 Social History Tobacco Use Types Packs/Day Years Used Date Smoking Tobacco: Every Day Cigarettes Smokeless Tobacco: Never Tobacco Cessation:Ready to Q uit: No; Counseling Given: Yes Childcare Answer Date Recorded Childcare Unknown 11/13/2018 Employment Answer Date Recorded Employment Unknown 11/13/2018 Sex and Gender Information Value Date Recorded Sex Assigned at Not on file Legal Sex Male 11:49 AM EDT Gender Identity Not on file Sexual Orientation Not on file Last Filed Vital Signs Vital Sign Reading Time Taken Comments Blood Pressure 170/86 03/29/2022 2:39 PM EDT Pulse 80 03/29/2022 2:39 PM EDT Temperature - - Respiratory Rate 18 03/29/2022 2:39 PM EDT Oxygen Saturation 96% 03/29/2022 2:39 PM EDT Inhaled Oxygen Concentration - - Weight 79.4 kg (175 lb) 03/29/2022 2:39 PM EDT Height 167.6 cm (5' 6 ) 03/29/2022 2:39 PM EDT Body Mass Index 28.25 03/29/2022 2:39 PM EDT Plan of Treatment Health Maintenance Due Date Last Done Comments Depression Screening 1978 Tobacco Screening 1978 DTaP,Tdap and Td Vaccines (1 - Tdap) 1985 Zoster (Shingles) Vaccine (1 of 2) 2016 Adult BMI Screening 03/29/2023 03/29/2022 COVID-19 Vaccine ( season) 2024, 09/07/2020 Influenza Vaccine 02/02/2025 Medical Devices Not on file Insurance MEDICARE Care Teams Double Backer Relationship Specialty Start Date End Date Yamilka Thomas DO [address] [place] [address] PCP - General Family Medicine 02/27/22
--- OUTSIDE RECORDS SUMMARY | 2024-12-01 14:34 | XMS_ITS | Encounter Summary ---
Author Organization [facility] Address [address] [place] [address] Care Team Providers Care Manager Resort Name Role Phone Yamilka Thomas DO Primary Care Provider [phone] Reason for Visit * Reason Comments Medication Refill Encounter Details Date Type Department Care Team (Late st Contact Info) Description 02/23/2019 Refill [facility] [address] [place] [address] Yamilka Thomas DO [address] [place] [address] Medication Refill Social History Tobacco Use Types Packs/Day Years Used Date Smoking Tobacco: Every Day Cigarettes Smokeless Tobacco: Never Alcohol Use Standard Drinks/Week Comments No 0 (1 standard drink = 0.6 oz pur e alcohol) PHQ-2 Answer Date Recorded PHQ-2 Score 2 09/04/2018 Sex and Gender Information Value Date Recorded Sex Assigned at Not on file Legal Sex Male 10:06 AM EST Gender Identity Not on file Sexual Orientation Not on file documented as of this encounter Plan of Treatment Not on file documented as of this encounter Visit Diagnoses Not on filedocumented in this encounter Care Teams Manager Resort Relationship Specialty Start Date End Date Yamilka Thomas DO [address] [place] [address] PCP - General Family Medicine 02/27/18 documented as of this encounter
--- OUTSIDE RECORDS SUMMARY | 2024-12-01 14:35 | XMS_ITS | Encounter Summary ---
Author Organization [facility] Address [address] [place] [address] Phone Care Team Providers Care Auto Tester Name Role Phone Yamilka Thomas DO Primary Care Provider + Encounter Details Date Type Department Care Team (Late st Contact Info) Description 07/23/2020 Orders Only [facility] [address] [place] [address] Conversion, Onbase Social History Tobacco Use Types Packs/Day Years Used Date Smoking Tobacco: Never Assessed Sex and Gender Information Value Date Recorded Sex Assigned at Not on file Legal Sex Male 5:48 AM EST Gender Identity Not on file Sexual Orientation Not on file documented as of this encounter Plan of Treatment Upcoming Encounters Date Type Department Care Team (Late st Contact Info) Description 07/28/2025 1:30 PM EST Office Visit [place] [id number] [facility] [address] [place] [phone] Won Israel DO [address] [facility] 2, Ger[place] [address] [place] [address] Scheduled Orders Name Type Priority Associated Diagnoses Orde r Schedule OUTSIDE LAB SCAN Lab Ordered: 07/23/2020 OUTSIDE LAB SCAN Lab Ordered: 07/23/2020 documented as of this encounter Visit Diagnoses Not on filedocumented in this encounter Care Teams Auto Tester Relationship Specialty Start Date End Date Yamilka Thomsa DO [address] [place] [phone] PCP - General 06/26/19 documented as of this encounter
--- OUTSIDE RECORDS SUMMARY | 2024-12-01 14:35 | XMS_ITS | Clinical Summary ---
Author Organization [facility] Address [address] [place] [address] Care Team Providers Care Assistant Portfolio Manager Name Role Phone Yamilka Thomas Primary Care Provider [phone] Allergies Active Allergy Reactions Criticality Noted Date Comments Levofloxacin Hives 10/18/2022 Penicillins Unknown 10/18/2022 Medications hydroCHLOROthiaz zain (HYDRODiuril) 25 MG tablet Take 25 mg by mouth in the morning. Active pantoprazole (ProtoNix) 40 MG EC tablet Take 40 mg by mouth in the morning. Take before meals. Active sildenafil (Viagra) 25 MG tablet 1 (one) time each day at the same time. Active vilazodone (Viibryd) 20 MG tablet Take 20 mg by mouth in the morning. Take with meals. Active lisinopril 40 MG tablet Take 40 mg by mouth in the morning. Active pramipexole (Mirapex) 0.25 MG tablet Take 0.25 mg by mouth every 12 (twelve) hours. Active isosorbide mononitrate ER (Imdur) 30 MG 24 hr tablet Take 30 mg by mouth in the morning. Active amLODIPine (Norvasc) 2.5 MG tablet Take 2.5 mg by mouth in the morning. Active cyclobenzaprine (Flexeril) 10 MG tablet Take 10 mg by mouth 3 (three) times a day as needed. Active albuterol HFA 90 mcg/act inhaler Inhale 2 puffs every 6 (six) hours if needed. Active carvedilol (Coreg) 25 MG tablet Take 25 mg by mouth in the morning and 25 mg in the evening. Take with meals. Active atorvastatin (Lipitor) 40 MG tablet Take 40 mg by mouth in the morning. Active alfuzosin ER (Uroxatral) 10 MG 24 hr tablet Take 10 mg by mouth in the morning. Active nitroglycerin (Nitrostat) 0.[address] 0.4 mg under the tongue every 5 (five) minutes if needed. Active aspirin 81 MG EC tablet Take 81 mg by mouth in the morning. 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 CAD (coronary artery disease) 10/18/2022 Hypertension 10/18/2022 Hyperlipidemia 10/18/2022 Resolved Problems Problem Noted Date Diagnosed Date Resolved Date Disorder of intervertebral disc 10/18/2022 10/18/2022 Gastroesophageal reflux disease 10/18/2022 10/18/2022 Intractable migraine without status migrainosus 10/18/2022 10/18/2022 Low back pain 10/18/2022 10/18/2022 Pure hypercholesterolemia 10/18/2022 Spinal stenosis in cervical region 10/18/2022 10/18/2022 Encounters Date Type Department Care Team Description 09/23/2024 Telephone [facility] [address] [place] [phone] Barbara Tavares DO LEAD INSTRUCTOR/FLIGHT ATTENDANT EM[facility] from Last 3 Months Immunizations Immunization Administration Dates Next Due SARS-CoV-2, Unspecified 06/26/2021,09/07/2020 Social History Tobacco Use Types Packs/Day Years Used Date Smoking Tobacco: Every Day Cigarettes Tobacco Cessation:Ready to Q uit: Not Asked; Counseling Given: Not Answered Alcohol Use Standard Drinks/Week Comments Yes 0 (1 standard drink = 0.6 oz pur e alcohol) socially Sex and Gender Information Value Date Recorded Sex Assigned at Not on file Legal Sex Male 6:35 PM EDT Gender Identity Not on file Sexual Orientation Not on file Last Filed Vital Signs Vital Sign Reading Time Taken Comments Blood Pressure - - Pulse - - Temperature 36.4 C (97.5 F) 04/24/2023 2:49 PM EST Respiratory Rate - - Oxygen Saturation - - Inhaled Oxygen Concentration - - Weight 78.9 kg (174 lb) 04/24/2023 2:49 PM EST Height 167.6 cm (5' 6 ) 04/24/2023 2:49 PM EST Body Mass Index 28.08 04/24/2023 2:49 PM EST Plan of Treatment Health Maintenance Due Date Last Done Comments CT Colonography 1966 FIT 1966 FOBT 04/27/2020 04/27/2019 FIT-DNA 04/22/2022 04/22/2019 Influenza Vaccine (Season Ended) 2025 Sigmoidoscopy 10/18/2027 10/17/2022, 10/17/2022 Colonoscopy 08/30/2032 08/30/2022 Colorectal Cancer Screening 08/30/2032 Insurance [employer] Advance Directives Documents on File Type Date Recorded Patient Resident Physician Expl anation Advance Directives and Living Will 10/19/2022 10:25 AM Human Medicare Care Teams Assistant Portfolio Manager Relationship Specialty Start Date End Date Yamilka Thomas DO [address] [place] [phone] PCP - General Internal Medicine 10/19/22
--- OUTSIDE RECORDS SUMMARY | 2024-12-01 14:35 | XMS_ITS | Clinical Summary ---
Author Organization [facility] Address [address] [place] [address] Care Team Providers Care Buffet Runner Name Role Phone Yamilka Thomas DO Primary Care Provider Allergies Active Allergy Reactions Criticality Noted Date Comments Levofloxacin Hives 10/18/2022 Penicillins Hives 09/24/2013 Medications nitroGLYCERIN (NITROSTAT) 0.[address] 1 tablet under the tongue 4 Active carvedilol (COREG) 25 MG tablet TAKE 1 TABLET BY MOUTH TWICE A DAY 1 Active albuterol sulfate HFA (PROVENTIL;VENT SENA;PROAIR) 108 (90 Base) MCG/ACT inhaler INHALE 2 PUFFS BY MOUTH EVERY 4 HOURS NEEDED FOR SHORTNESS OF BREATH 13.4 each 1 4 Active amLODIPine (NORVASC) 5 MG tablet Take 1 tablet by mouth daily 4 Active clopidogrel (PLAVIX) 75 MG tablet Take 1 tablet by mouth daily 4 Active KLOR-CON M20 20 MEQ extended release tablet TAKE 1 TABLET BY MOUTH EVERY DAY 90 tablet 1 4 Active valsartan (DIOVAN) 160 MG tablet Take 1 tablet by mouth daily 5 07/16/19 26 Active pramipexole (MIRAPEX) 0.75 MG tablet TAKE 1-2 TABLETS BY MOUTH 2-3 HOURS BEFORE BEDTIME 180 tablet 1 5 Active clonazePAM (KLONOPIN) 0.5 MG tabletIndicatio ns:Muscle spasm of both lower legs,RLS (restless legs syndrome) Take 1-2 tablets by mouth nightly as needed (restless legs) for up to 90 days. Max Daily Amount: 1 mg 60 tablet 2 5 Active atorvastatin (LIPITOR) 40 MG tablet Take 1 tablet by mouth nightly 90 tablet 3 5 Active sildenafil (REVATIO) 20 MG tablet TAKE 3 TO 5 TABLETS BY MOUTH DAILY NEEDED FOR E.D. 30 tablet 3 5 Active pantoprazole (PROTONIX) 40 MG tablet TAKE 1 TABLET BY MOUTH TWICE A DAY 180 tablet 1 5 Active furosemide (LASIX) 20 MG tablet TAKE 1 TABLET BY MOUTH DAILY NEEDED (SWELLING). 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 09/25/2013 HTN (hypertension) 09/25/2013 S/P coronary artery stent placement 09/25/2013 Resolved Problems Problem Noted Date Diagnosed Date Resolved Date Dyspnea, unspecified 04/20/2015 019 Encounters Date Type Department Care Team Description 11/20/[address] [phone] Montez Alexander DO Returning call 11/19/2024 2:00 PM EDT Office Visit [address] [phone] Montez Alexander DO Bilateral lower extremity edema (Primary Dx); Venous stasis of both lower extremities; Hemangioma of skin 09/22/2024 Results Follow-Up [address] [phone] Yamilka Thomas DO 09/17/2024 1:10 PM EDT - 09/19/2024 11:59 PM EDT Hospital Encounter [address] [address] Yamilka Thomas DO Muscle spasm of both lower legs; Chronic bilateral low back pain with bilateral sciatica Discharge Disposition: Home or Self Care 09/17/2024 Orders Only [address] [address] Mario Herrera Jr., MD Muscle spasm (Primary Dx) 09/17/2024 Orders Only [address] [address] Mario Herrera Jr., MD Spasm of muscle (Primary Dx) 09/15/[address] [phone] Yamilka Thomas, DO Medication Refill 09/01/[address] [phone] Yamilka Thomas, DO Medication Refill from Last 3 Months Immunizations Immunization Administration Dates Next Due COVID-19, J&J, (age 18y+), IM, 0.5 mL 09/07/2020 COVID-19, ASHLY love, Primary or Immunocompromised, (age 12y+), IM, 100 mcg/0.5mL 06/26/2021 COVID-19, [place] Vaccine, Vaccine Unspecified 2021,09/07/2020 TDaP, ADACEL (age 10y-64y), BOOSTRIX (age 10y+), IM, 0.5mL 09/30/2024 Family History Medical History Relation Name Comments Cancer Father Homero Rodirgues colon Heart Attack Father Homero Rodrigues Heart Attack Mother Yessi Rodrigues Colon Cancer Sister Relation Name Status Comments Father Homero Rodrigues Mother Yessi Rodrigues Sister Social History Tobacco Use Types Packs/Day Years Used Date Smoking Tobacco: Every Day Cigarettes 1 15 Smokeless Tobacco: Never Tobacco Cessation:Ready to Q uit: Not Asked; Counseling Given: Not Answered Alcohol Use Standard Drinks/Week Comments Yes 0 (1 standard drink = 0.6 oz pur e alcohol) [facility] Utilities Answer Date Recorded In the past 12 months has th e [employer], gas, oil, or water [employer] threatened to shut off services in your [...] place to sleep or slept in a group home (including now)? No 07/20/2023 Housing Stability Vital Sign Answer Bk e Recorded In the last 12 months, was t here a time when you were not able to pay the mortgage or rent on time? No 07/28/2024 In the past 12 months, how m any times have you moved where you were living? 0 07/28/2024 At any time in the past 12 m onths, were you homeless or living in a group home (including now)? No 07/28/2024 Food Insecurity Answer [...] Pulse 85 11/19/2024 2:03 PM EDT Temperature 36.2 C (97.2 F) 01/02/2024 11:34 AM EDT Respiratory Rate - - Oxygen Saturation 96% 11/19/2024 2:03 PM EDT Inhaled Oxygen Concentration - - Weight 82.6 kg (182 lb) 11/19/2024 2:03 PM EDT Height 170.2 cm (5' 7.01 ) 08/20/2024 1:22 PM ED T Body Mass Index 28.5 08/20/2024 1:22 PM EDT Plan of Treatment Health Maintenance Due Date Last Done Comments HIV screen 1981 Hepatitis C screen 1984 Hepatitis B vaccine (1 of 3 - 19+ 3-dose series) 1985 Pneumococcal 50+ years Vaccine (1 of 2 - PCV) 1985 FIT/FOBT: Average risk 10/02/2011 Sigmoidoscopy/CT colonography 10/02/2011 Shingles vaccine (1 of 2) 2016 Fecal-DNA (Cologuard): Average risk 04/14/2022 04/27/2019, 04/22/2019 COVID-19 Vaccine ( season) 2024 06/26/2021, 06/26/2021, 09/07/2020, Additional history exists Flu vaccine (Season Ended) 2025 Depression Monitoring 07/28/2025 07/28/2024, 025 Lipids 08/04/2025 08/04/2024 Colonoscopy 08/30/2032 08/30/2022, 04/22/2019 Colorectal Cancer Screen 08/30/2032 DTaP/Tdap/Td vaccine (2 - Td or Tdap) 09/30/2034 09/30/2024 Annual Wellness Visit (Medicare Advantage) Completed 07/28/2024, 06/27/2023, 02/26/2023, Additional history exists Hepatitis A vaccine Aged Out No longe r eligible based on patient's age to complete this topic Hib vaccine Aged Out No longer eligi ble based on patient's age to complete this topic Meningococcal (ACWY) vaccine Aged Out No longer eligible based on patient's age to complete this topic Meningococcal B vaccine Aged Out No l onger eligible based on patient's age to complete this topic Polio vaccine Aged Out No longer elig ible based on patient's age to complete this topic Procedures Procedure Name Priority Date/Time Associated Diagnosis Comments MRI LUMBAR SPINE W WO CONTRAST Routine 09/17/2024 3:06 PM EDT Muscle spasm of both lower legs Chronic bilateral low back pain with bilateral sciatica BUN & CREATININE Routine 09/17/2024 1:24 PM EDT LIPID PANEL Routine 08/04/2024 Coronary artery disease of inaja artery of inaja heart with stable angina pectoris HM COLONOSCOPY Routine 08/30/2022 FECAL DNA COLORECTAL CANCER SCREENING (COLOGUARD) Routine 04/27/2019 Screening for colorectal cancer from Last 3 Months or Most Recently Relevant to Health Maintenance Results * MRI LUMBAR SPINE W WO CONTRAST (09/17/2024 3:06 PM EDT) Anatomical Region Laterality Modality T-spine, L-spine, Pelvis Magneti c Resonance 09/17/2024 3:06 PM EDT Impressions 09/22/2024 8:36 AM EDT Postop and degenerative changes; no residual or recurrent high-grade canal or foraminal stenosis Narrative 09/22/2024 8:36 AM EDT EXAM: MRI LUMBAR SPINE W WO CONTRAST HISTORY: Muscle spasm of both lower legs COMPARISON: MRI lumbar spine 02/01/2022 TECHNIQUE: Routine lumbosacral spine MR protocol without and with gadolinium. 15 mL IV MultiHance RESULT: Counting reference: For the purposes of this report, L4-5 is considered the level of the iliac crest. Alignment: Alignment is anatomic. Bone marrow signal/fracture: No evidence of pathologic marrow infiltration. No evidence of prior fracture. L5-S1 posterior decompression and fusion Conus: The conus is within normal limits of signal intensity and morphology. No abnormal enhancement Paraspinal soft tissues: Paraspinal soft tissues are within normal limits. Lower thoracic spine: Visualized lower thoracic canal and foramina are patent. Canal and Foramina: Broad-based disc bulge at L5-S1 contacts the bilateral exiting S1 nerve roots, similar to prior Sacrum and iliac wings: The visualized sacrum and iliac wings are within normal limits. Procedure Note Giovanni Anthony MD - 09/22/2024 EXAM: MRI LUMBAR SPINE W WO CONTRAST HISTORY: Muscle spasm of both lower legs COMPARISON: MRI lumbar spine 02/01/2022 TECHNIQUE: Routine lumbosacral spine MR protocol without and withgadolinium. 15 mL IV MultiHance RESULT: Counting reference: For the purposes of this report, L4-5 is consideredthe level of the iliac crest. Alignment: Alignment is anatomic. Bone marrow signal/fracture: No evidence of pathologic marrowinfiltration. No evidence of prior fracture. L5-S1 posterior decompression and fusion Conus: The conus is within normal limits of signal intensity andmorphology. No abnormal enhancement Paraspinal soft tissues: Paraspinal soft tissues are within normallimits. Lower thoracic spine: Visualized lower thoracic canal and foramina arepatent. Canal and Foramina: Broad-based disc bulge at L5-S1 contacts the bilateral exiting S1 nerve roots, similar to prior Sacrum and iliac wings: The visualized sacrum and iliac wings are within normal limits. IMPRESSION: Postop and degenerative changes; no residual or recurrent high-gradecanal or foraminal stenosis us Yamilka Thomas DO IMG MRI ORDERABLES Final Res ult * BUN & Creatinine (09/17/2024 1:24 PM EDT) BUN 16 6 - 20 mg/dL 09/17/2024 1:24 PM EDT [facility] Creatinine 0.8 0.7 - 1.2 mg/dL 09/17/2024 1:24 PM EDT [facility] Est, Glom Filt Rate >90 >60 mL/min/1.7 3m2 09/17/2024 1:24 PM EDT [facility] Comment: These results are not intended for use in patients <18 years of age. eGFR results are calculated without a race factor using the 2020 CKD-EPI equation. Careful clinical correlation is recommended, particularly when comparing to results calculated using previous equations. The CKD-EPI equation is less accurate in patients with extremes of muscle mass, extra-renal metabolism of creatine, excessive creatine ingestion, or following therapy that affects renal tubular secretion. 09/17/2024 1:24 PM EDT 09/17/2024 1:25 PM EDT Yamilka Thomas DO CHEMISTRY ORDERABLES Final R esult [facility] [address] [place] [address], [facility] [phone] * Lipid Panel (08/04/2024) Cholesterol, Total 158 mg/dL HDL 42 35 - 70 mg/dL LDL Cholesterol 90.6 Triglycerides 127 mg/dL Chol/HDL Ratio 3.8 VLDL 25.4 mg/dL Cholesterol non HDL Blood BLOOD SPECIMEN / Unknown 08/04/2024 Yamilka Thomas DO CHEMISTRY ORDERABLES Final R esult * HM COLONOSCOPY (08/30/2022) Historical Provider HEALTH MAINTENANCE Final Result * Cologuard (For External Results Only) (04/27/2019) STOOL SPECIMEN / Unknown Yamilka Thomas DO MICROBIOLOGY - GENERAL ORDER MIKE Final Result from Last 3 Months or Most Recently Relevant to Health Maintenance Insurance [employer] Advance Directives Healthcare Agents on File Name Relationship Healthcare Agent Relationshi p Communication Derrick Rodrigues Brother/Sister Primary Decision Maker Care Teams Buffet Runner Relationship Specialty Start Date End Date Yamilka Thomas DO [address] [place] [phone] PCP - General Family Medicine 02/27/18
--- OUTSIDE RECORDS SUMMARY | 2024-12-01 14:35 | XMS_ITS | Encounter Summary ---
Author Organization [facility] Address [address] [place] [address] Care Team Providers Care Tour Bus Driver Name Role Phone Uli Garcia Jr. Primary Care Provider Unava Juan Aquino Unavailable Sivakumar Beatty DO Primary Care Provider Giovanni Calvert MD Unavailable [phone] Giovanni Calvert MD Unavailable [phone] Yamilka Thomas MD Primary Care Provider [phone] Juanis Dasilva RN Unavailable Unavailable Yusef Haynes MD Unavailable [phone] Yamilka Thomas MD Unavailable [phone] Source Comments In the event this information is protected by the Federal Confidentiality of Alcohol and Drug AbusePatient Records regulations: The Federal rules restrict any use of the information to criminally investigate or prosecute any alcohol or drug abuse patient.[facility] Reason for Visit * Reason Comments PSG check in (Adult) Encounter Details Date Type Department Care Team (Late st Contact Info) Description 05/06/2014 Abstract Neurology [address] [place], [place] [id number] Main, Sleep Center [address] [place] [address] PSG check in (Adult) Social History Tobacco Use Types Packs/Day Years Used Date Smoking Tobacco: Every Day Cigarettes 0.5 20 Alcohol Use Standard Drinks/Week Comments Yes 4 (1 standard drink = 0.6 oz pur e alcohol) Sex and Gender Information Value Date Recorded Sex Assigned at Not on file Legal Sex Male 8:10 AM EDT Gender Identity Not on file Sexual Orientation Not on file documented as of this encounter Functional Status * Are you deaf or do you have serious difficulty hearing? Answer Date of Assessment Author No 05/05/2014 9:25 AM Tish Olivera Ma * Are you blind or do you have serious difficulty seeing, even when wearing glasses? Answer Date of Assessment Author No 05/05/2014 9:25 AM Tish Olivera Ma * Do you have serious difficulty walking or climbing stairs? Answer Date of Assessment Author Yes 05/05/2014 9:25 AM Tish Olivera Ma * Do you have difficulty dressing or bathing? Answer Date of Assessment Author No 05/05/2014 9:25 AM Tish Olivera Ma * Because of a physical, mental, or emotional condition, do you have difficulty doing errands alone such as visiting a doctor's office or shopping? Answer Date of Assessment Author No 05/05/2014 9:25 AM Tish Olivera Ma documented as of this encounter Mental Status * Because of a physical, mental, or emotional condition, do you have serious difficulty concentrating, remembering, or making decisions? Answer Entry Date Author Yes 05/05/2014 9:25 AM Tish Olivera Ma documented in this encounter Plan of Treatment Not on file documented as of this encounter Visit Diagnoses Not on filedocumented in this encounter Care Teams Tour Bus Driver Relationship Specialty Start Date End Date Uli Garcia Jr. PCP - General Family Medicine 09/15/13 11/02/14 Sivakumar Beatty DO PCP - General Family Medicine 11/03/14 09/13/22 Yamilka hTomas MD [facility] [place] [place] [phone] PCP - General Family Medicine 09/14/22 Juan Solorzano Primary Staff Physician Cardiology 09/02/14 6 Giovanni Calvert MD [address] [facility] [facility] [address] [place] [address] Primary Staff Physician Cardiology 08/20/1808/20 Giovanni Calvert MD [address] [facility] [address] [place] [address] Primary Staff Physician Cardiology 08/20/18 Juanis Dasilva, RN Specialty Operations Manager Station Colon and Rectal Surgery 10/02/22 10/03/27 Yusef Haynes MD [address] [place] [address] [place] [address] Hematology/Oncology 11/14/22 Yamilka Thomas MD [address] [place] [address] Referring Family Medicine 09/25/24 documented as of this encounter
--- OUTSIDE RECORDS SUMMARY | 2024-12-01 14:35 | XMS_ITS | Encounter Summary ---
Author Organization [facility] Address [address] [place] [address] Care Team Providers Care Lot Associate Name Role Phone Yamilka Thomas DO Primary Care Provider [phone] Reason for Visit * Reason Comments Medication Refill Encounter Details Date Type Department Care Team (Late st Contact Info) Description 09/14/2020 Refill [facility] [address] [place] [address] Yamilka Thomas DO [address] [place] [address] Medication Refill Social History Tobacco Use Types Packs/Day Years Used Date Smoking Tobacco: Every Day Cigarettes Smokeless Tobacco: Never Alcohol Use Standard Drinks/Week Comments No 0 (1 standard drink = 0.6 oz pur e alcohol) Overall Financial Resource Strain (CARDIA) Answe r Date Recorded Difficulty of Paying Living Expenses Not hard at all 10/21/2019 PHQ-2 Answer Date Recorded PHQ-9 Total Score 0 06/09/2020 Hunger Vital Sign Answer Date Recorded Worried [...] Diagnoses Not on filedocumented in this encounter Additional Health Concerns Assessment Noted Time A fall risk assessment has been complete d for the patient 06/09/2020 10:22 AM EST documented as of this encounter Care Teams Lot Associate Relationship Specialty Start Date End Date Yamilka Thomas DO [address] [place] [address] PCP - General Family Medicine 02/27/18 documented as of this encounter
--- OUTSIDE RECORDS SUMMARY | 2024-12-01 14:35 | XMS_ITS | Encounter Summary ---
Author Organization [facility] Address [address] [place] [address] Care Team Providers Care Linux Network Systems Administrator Name Role Phone Tashalamar Yamilka Regino MORENO Primary Care Provider [phone] Encounter Details Date Type Department Care Team (Late st Contact Info) Description 09/03/2023 Orders Only [facility] [address] [place] [address] Provider, MD Chad Social History Tobacco Use Types Packs/Day Years Used Date Smoking Tobacco: Every Day Cigarettes 1 15 Smokeless Tobacco: Never Alcohol Use Standard Drinks/Week Comments Yes 0 (1 standard drink = 0.6 oz pur e alcohol) AUDIT-C Answer Date Recorded Q1: How often do you have a drink containing alc ohol? 2-3 times a week 06/27/2023 Q2: How many drinks containi ng alcohol do you have on a typical day when you are drinking? 1 or 2 06/27/2023 Q3: How often do you have si x or more drinks on one occasion? Less than monthly 06/27/2023 Overall Financial Resource Strain (CARDIA) Answe r Date Recorded How hard is it for you to pa y for the very basics like food, housing, medical care, and heating? Not hard at all 07/20/2023 PHQ-2 Answer Date Recorded PHQ-9 Total Score 4 06/27/2023 Exercise Vital Sign Answer Date Recorde d On average, how many days pe r week do you engage in moderate to strenuous exercise (like a brisk walk)? 7 days 06/27/2023 On average, how many minutes do you engage in exercise at this level? 60 min 06/27/2023 Hunger Vital Sign Answer Date Recorded Within the past 12 months, y ou worried that your food would run out before you got the money to buy more. Never true 07/20/19 24 Within the past 12 months, t he food you bought just didn't last and you didn't have money to get more. Never true 07/20/2023 PRAPARE - Transportation Answer Date Re corded Lack of Transportation (Medical) Not on file 07/20/2023 In the past 12 months, has l ack of transportation kept you from meetings, work, or from getting things needed for daily living? No 07/20/2023 Housing Stability Vital Sign Answer Bk e Recorded Unable to Pay for Housing in the Last Year Not o n file 07/20/2023 Number of Places Lived in the Last Year Not on f ile 07/20/2023 In the last 12 months, was t here a time when you did not have a steady place to sleep or slept in a correction (including now)? No 07/20/2023 Food Insecurity Answer Date Recorded Within the past 12 months, y ou worried that your food would run out before you got the money to buy more. 1 07/20/2023 Within the past 12 months, t he food you bought just didn't last and you didn't have money to get more. 1 07/20/2023 Sex and Gender Information Value Date Recorded Sex Assigned at Not on file Legal Sex Male 10:06 AM EST Gender Identity Not on file Sexual Orientation Not on file documented as of this encounter Plan of Treatment Not on file documented as of this encounter Procedures Procedure Name Priority Date/Time Associated Diagnosis Comments AMB POC PT/INR Routine 08/30/2023 8:48 AM EDT documented in this encounter Results * AMB POC PT/INR (08/30/2023 8:48 AM EDT) BLOOD SPECIMEN / Unknown us Historical Provider POINT OF CARE TEST ORDERA BLES Final Result documented in this encounter Visit Diagnoses Not on filedocumented in this encounter Additional Health Concerns Assessment Noted Time A fall risk assessment has been complete d for the patient 06/27/2023 7:38 AM EST documented as of this encounter Care Teams Linux Network Systems Administrator Relationship Specialty Start Date End Date Yamilka Thomas DO [address] [place] [address] PCP - General Family Medicine 02/27/18 documented as of this encounter
--- OUTSIDE RECORDS SUMMARY | 2024-12-01 14:35 | XMS_ITS | Encounter Summary ---
Author Organization [facility] Address [address] [place] [address] Care Team Providers Care Programmer Analyst Consultant Name Role Phone Yamilka Thomas DO Primary Care Provider Encounter Details Date Type Department Care Team (Late st Contact Info) Description 10/30/2022 Abstract [facility] [address] [place] [address] Magali Ronquillo MD [address] [facility] [address] [place] [address] Social History Tobacco Use Types Packs/Day Years [...] on filedocumented in this encounter Care Teams Programmer Analyst Consultant Relationship Specialty Start Date End Date Yamilka Thomas DO [address] [place] [place] [address] PCP - General Internal Medicine 10/19/22 documented as of this encounter
--- OUTSIDE RECORDS SUMMARY | 2024-12-01 14:35 | XMS_ITS | Encounter Summary ---
Author Organization [facility] Address [address] [place] [address] Care Team Providers Care Real Estate Legal Secretary Name Role Phone Yamilka Thomas DO Primary Care Provider + [phone] Reason for Referral * Eval and Treat (Routine) - Open Specialty Diagnoses / Procedures Referred By Contac t Referred To Contact Physician Integrated Program Teacher Diagnoses Hemangioma of skin Montez Alexander DO [address] [place] [address] Phone: tel: fax: Kareen Honeycutt PA-C [address] [address] Phone: tel: fax: Referral ID Status Reason Start Date Expiration Date V isits Requested Visits Authorized [id number] Open Specialty Services Required 11/21/2024 05/20/2025 1 1 Question Answer Reason For External Referral? Physician Choice My clinical question is: right forearm lesion Comments The patient can be scheduled with any member of the group, including the provider with the first available appointments. Reason for Visit * Reason Onset Date Comments Returning call 11/20/2024 Encounter Details Date Type Department Care Team (Late st Contact Info) Description 11/20/2024 Telephone [facility] [address] [place] [address] Montez Alexander, DO [address] [place] [address] Returning call Social History Tobacco Use Types Packs/Day Years Used Date Smoking Tobacco: Every Day Cigarettes 1 15 Smokeless Tobacco: Never Alcohol Use Standard Drinks/Week Comments Yes 0 (1 standard drink = 0.6 oz pur e alcohol) [facility] Utilities Answer Date Recorded In the past 12 months has th e [employer], gas, oil, or water company threatened to [...] place to sleep or slept in a mcfp (including now)? No 07/20/2023 Housing Stability Vital [...] were you homeless or living in a mcfp (including now)? No 07/28/2024 Food Insecurity Answer [...] as of this encounter Plan of Treatment Scheduled Referrals Name Type Priority Associated Diagnoses Order Schedule External Referral To Dermatology Outpatient Referral Routine Hemangioma of skin Ordered: 11/21/2024 documented as of this encounter Visit Diagnoses Diagnosis Hemangioma of skin- Primary Hemangioma of skin and subcutaneous tissue documented in this encounter Additional Health Concerns Assessment Noted Time A fall risk assessment has been complete d for the patient 07/28/2024 1:23 PM EST documented as of this encounter Care Teams Real Estate Legal Secretary Relationship Specialty Start Date End Date Yamilka Thomas DO [address] [place] [id number] PCP - General Family Medicine 02/27/18 documented as of this encounter
--- OUTSIDE RECORDS SUMMARY | 2024-12-01 14:35 | XMS_ITS | Encounter Summary ---
Author Organization [facility] Address [address] [place] [address] Care Team Providers Care Auto Inspector Name Role Phone Yamilka Thmoas DO Primary Care Provider + [phone] Reason for Referral * Eval and Treat (Routine) - Open Specialty Diagnoses / Procedures Referred By Contac t Referred To Contact Neurosurgery Diagnoses Chronic bilateral low back pain with bilateral sciatica Muscle spasm of both lower legs Yamilka Thomas DO [address] [place] [address] Phone: tel: fax: Referral ID Status Reason Start Date Expiration Date V isits Requested Visits Authorized [id number] Open Specialty Services Required 09/23/2024 03/22/2025 [address] Davalos, [facility] Question Answer Reason For External Referral? Location Comments The patient can be scheduled with any member of the group, including the provider with the first available appointments. Encounter Details Date Type Department Care Team (Late st Contact Info) Description 09/22/2024 Results Follow-Up [facility] [address] [place] [address] Yamilka Thomas DO [address] [place] [address] Social History Tobacco Use Types Packs/Day Years Used Date Smoking Tobacco: Every Day Cigarettes 1 15 Smokeless Tobacco: Never Alcohol Use Standard Drinks/Week Comments Yes 0 (1 standard drink = 0.6 oz pur e alcohol) [facility] Utilities Answer Date Recorded In the past 12 months has th e electric, gas, oil, or water company threatened to [...] place to sleep or slept in a intermediate (including now)? No 07/20/2023 Housing Stability Vital [...] were you homeless or living in a intermediate (including now)? No 07/28/2024 Food Insecurity Answer [...] Associated Diagnoses Order Schedule External Referral To Neurosurgery Outpatient Referral Routine Chronic bilateral low back pain with bilateral sciatica Muscle spasm of both lower legs Ordered: 09/23/2024 documented as of this encounter Visit Diagnoses Diagnosis Chronic bilateral low back pain with bilateral sciatica- Primary Muscle spasm of both lower legs Spasm of muscle documented in this encounter Additional Health Concerns Assessment Noted Time A fall risk assessment has been complete d for the patient 07/28/2024 1:23 PM EST documented as of this encounter Care Teams Auto Inspector Relationship Specialty Start Date End Date Yamilka Thomas DO [address] [place] [address] PCP - General Family Medicine 02/27/18 documented as of this encounter
--- OUTSIDE RECORDS SUMMARY | 2024-12-01 14:35 | XMS_ITS | Encounter Summary ---
Author Organization [facility] Address [address] [place] [address] Care Team Providers Care Revenue Investigator Name Role Phone Tashalamar Yamilka Regino MORENO Primary Care Provider [phone] Encounter Details Date Type Department Care Team (Late st Contact Info) Description 10/16/2023 Orders Only [facility] [address] [place] [address] Provider, MD Chad Social History [...] place to sleep or slept in a nursing home (including now)? No 07/20/2023 Food Insecurity Answer [...] Procedure Name Priority Date/Time Associated Diagnosis Comments PULMONARY FUNCTION TEST Routine 10/08/2023 12:40 PM EDT PULMONARY FUNCTION TEST Routine 10/08/2023 12:35 PM EDT documented in this encounter Results * Pulmonary function test (10/08/2023 12:40 PM EDT) us Historical Provider MD PFT ORDERABLES Final Res ult * Pulmonary function test (10/08/2023 12:35 PM EDT) us Historical Provider MD PFT ORDERABLES Final Res ult documented in this encounter Visit Diagnoses Not on filedocumented in this encounter Additional Health Concerns Assessment Noted Time A fall risk assessment has been complete d for the patient 06/27/2023 7:38 AM EST documented as of this encounter Care Teams Revenue Investigator Relationship Specialty Start Date End Date Yamilka Thomas DO [address] [place] [address] PCP - General Family Medicine 02/27/18 documented as of this encounter
--- OUTSIDE RECORDS SUMMARY | 2024-12-01 14:35 | XMS_ITS | Encounter Summary ---
Author Organization [facility] Address [address] [place] [address] Care Team Providers Care Boiler Tenders Supervisor Name Role Phone Yamilka Thomas DO Primary Care Provider [phone] Reason for Visit * Reason Comments Medication Refill Encounter Details Date Type Department Care Team (Late st Contact Info) Description 03/31/2018 Refill [facility] [address] [place] [address] Yamilka Thomas DO [address] [place] [address] Medication Refill Social History Tobacco [...] on filedocumented in this encounter Care Teams Boiler Tenders Supervisor Relationship Specialty Start Date End Date Yamilka Thomas DO [address] [place] [address] PCP - General Family Medicine 02/27/18 documented as of this encounter
--- OUTSIDE RECORDS SUMMARY | 2024-12-01 14:35 | XMS_ITS | Encounter Summary ---
Author Organization [facility] Address [address] [place] [address] Care Team Providers Care Endoscope Technician Name Role Phone Tashalamar Yamilka Regino MORENO Primary Care Provider [phone] Encounter Details Date Type Department Care Team (Late st Contact Info) Description 08/30/2023 Orders Only [facility] [address] [place] [address] Provider, MD Chad Social History [...] in a intermediate (including now)? No 07/20/2023 Food Insecurity Answer [...] Procedure Name Priority Date/Time Associated Diagnosis Comments LAB RESULT Routine 08/30/2023 12:59 PM EDT documented in this encounter Results * LAB RESULT (08/30/2023 12:59 PM EDT) us Historical Provider CHEMISTRY ORDERABLES Kim l Result documented in this encounter Visit Diagnoses Not on filedocumented in this encounter Additional Health Concerns Assessment Noted Time A fall risk assessment has been complete d for the patient 06/27/2023 7:38 AM EST documented as of this encounter Care Teams Endoscope Technician Relationship Specialty Start Date End Date Yamilka Thomas DO [address] [place] [address] PCP - General Family Medicine 02/27/18 documented as of this encounter
--- OUTSIDE RECORDS SUMMARY | 2024-12-01 14:35 | XMS_ITS | Clinical Summary ---
Author Organization [facility] Address [address] [place], [place] [address] Care Team Providers Care Production Supv Name Role Phone Giovanni Calvert MD Unavailable [phone] Yamilka Thomas MD Primary Care Provider [phone] Juanis Dasilva RN Unavailable Unavailable Yusef Haynes MD Unavailable [phone] Yamilka Thomas MD Unavailable [phone] Allergies Active Allergy Reactions Criticality Noted Date Comments Penicillins Hives 09/24/2013 Medications aspirin, enteric coated 81 mg EC tablet Take 1 tablet by mouth once daily. 0 09/26/[address] (PROTONIX) 40 mg tablet Take 1 tablet by mouth daily before breakfast. 90 tablet 1 08/07/2014 Active lisinopril-hydr ochlorothiazide (PRINZIDE, ZESTORETIC) 20-25 mg per tablet Take 1 tablet by mouth once daily. Active atorvastatin (LIPITOR) 80 mg tablet TAKE 1/2 TABLET BY MOUTH EVERYDAY AT BEDTIME 30 tablet 6 02/28/2017 Active carvedilol (COREG) 12.5 mg tablet Take 1 tablet by mouth twice daily with meals. 60 tablet 07/11/2018 Active amLODIPine (NORVASC) 2.5 mg tablet Take 2.5 mg by mouth once daily. 09/04/2022 Active vilazodone (VIIBRYD) 20 mg tablet Take 20 mg by mouth once daily. 07/24/2022 Active cyclobenzaprine (FLEXERIL) 10 mg tablet TAKE 1 TABLET BY MOUTH EVERY NIGHT NEEDED FOR MUSCLE SPASM 06/12/2019 Active pramipexole (MIRAPEX) 0.25 mg tablet Take 1 tablet by mouth twice daily. 06/12/2019 Active acetaminophen (TYLENOL) 500 mg tablet Take 2 tablets by mouth every 6 hours. 10/27/2022 Active ibuprofen (MOTRIN) 400 mg tablet Take 1 tablet by mouth every 8 hours. 20 tablet 10/27/2022 Active lactobacillus rhamnosus (CULTURELLE) 10 billion cell capsule Take 1 capsule by mouth once daily. 30 capsule 10/27/2022 Active oxyCODONE IR (ROXICODONE) 5 mg immediate release tabletIndicatio ns:Post-op pain Take 1 tablet by mouth every 6 hours as needed. 25 tablet 10/27/2022 Active polyethylene glycol 3350 (MIRALAX) 17 gram/dose powder Take 17 g by mouth as directed. Dissolve dose in 4 - 8 ounces of liquid and take as directed. 10/27/2022 Active Active Problems Problem Noted Date Diagnosed Date Malignant neoplasm of ascending colon 10/23/2022 Cancer Staging:Pathologic stage from 10/26/2022: pT3, pN0 - Signed by Frank Baires MD on 10/26/2022 Pathologic:Stage IIA(pT3, pN0, cM0) - Signed by Yusef Haynes MD on 11/15/2022 COPD with chronic bronchitis 10/17/2022 DELFINO (obstructive sleep apnea) 10/11/2022 Assessment & Plan (10/11/2022 11:30 AM EDT): Assessment: NON Compliant with CPAP GERD (gastroesophageal reflux disease) 3 Assessment & Plan (10/11/2022 11:30 AM EDT): Assessment: Well controlled with PPI PONV (postoperative nausea and vomiting) 023 Assessment & Plan (10/11/2022 11:31 AM EDT): Assessment: Patient endorses with previous anesthesia. Will require pre- medication Dyspnea, unspecified 04/20/2015 Assessment & Plan (10/11/2022 11:29 AM EDT): Assessment: Endorses SOB with moderate activity and at night. Uses an inhaler PRN. Patient is a half-way smoker 1ppd. Recommended establishing with pulmonary medicine. Patient will also f/u cardiology. Mixed hyperlipidemia 11/03/2014 Assessment & Plan (10/11/2022 11:28 AM EDT): Assessment: Controlled with statin. Monitored per PCP. Smoking 11/03/2014 Assessment & Plan (10/11/2022 11:28 AM EDT): Assessment: Current 1 PPD smoker, states he plans to quit while in the hospital CAD (coronary artery disease) 09/25/2013 Assessment & Plan (10/11/2022 11:27 AM EDT): Assessment: H/O [place] S/P stent placement. Follows with Dr. García, recent ECHO (see results section). Will send letter for ASA clearance and optimization. S/P coronary artery stent placement 09/25/2013 HTN (hypertension) 09/25/2013 Assessment & Plan (10/11/2022 11:28 AM EDT): Assessment: Stable on RX medication. Follows with PCP. BP today 150/87 Encounters Date Type Department Care Team Description 10/30/2024 9:30 AM EDT Office Visit Spine Surgery [address] [place] [address] Lizz Hu PA-C Arthrodesis status (Primary Dx); Spinal stenosis of cervical region; Thoracic stenosis; Sacroiliitis; Restless legs syndrome 10/24/2024 Travel 09/25/2024 Abstract Neurology [address] [place] [address] (Hist), Unk Pcp 09/25/2024 Patient Msg Referring Physician [address] [facility] [place] [address] Provider, [facility] Appointment from Last 3 Months Family History Medical History Relation Comments Diabetes Father Heart Father Aneurysm Mother both lower extre meties Hypertension Mother Anesthesia Problems No Family History Relation Status Comments Father Alive Mother Alive Social History Tobacco Use Types Packs/Day Years Used Date Smoking Tobacco: Former Cigarettes 1 38.5 S tarted: 1986 Smokeless Tobacco: Former Tobacco Cessation:Counseling Given: Not Answered Alcohol Use Standard Drinks/Week Comments Not Currently 0 (1 standard drink = 0.6 oz pur e alcohol) 4 drinks per week. PHQ-2 Answer Date Recorded PHQ-2 score 3 10/24/2024 Area Deprivation Index Answer Date Tobias rded National Score (1-100), lower number is lower ri sk 79 10/11/2022 State Score (1-10), lower number is lower risk 7 10/11/2022 Data from: https://www.neighborhoodatlas.medicine.[facility]/. Last address used for calculation [address] 10/11/2022 Sex and Gender Information Value Date Recorded Sex Assigned at Not on file Legal Sex Male 8:10 AM EDT Gender Identity Not on file Sexual Orientation Not on file Occupation Industry Job Start Date Job End Date unemployed Not on file Not on file Not on file Last Filed Vital Signs Vital Sign Reading Time Taken Comments Blood Pressure 149/83 10/30/2024 9:13 AM EDT Pulse 74 10/30/2024 9:13 AM EDT Temperature 36.7 C (98 F) 11/10/2022 11:42 AM EDT Respiratory Rate 16 11/09/2022 3:23 PM EDT Oxygen Saturation 99% 10/30/2024 9:13 AM EDT Inhaled Oxygen Concentration - - Weight 83 kg (182 lb 15.7 oz) 10/30/2024 9:13 AM EDT Height 170.2 cm (5' 7 ) 11/10/2022 11:42 AM EDT Body Mass Index 28.66 11/10/2022 11:42 AM EDT Plan of Treatment Health Maintenance Due Date Last Done Comments Annual PCP Team Chronic Dise ase Visit 1984 Anxiety Screening 1984 Depression Screening 1984 HIV Screening 1984 Hepatitis C Screening 1984 Hepatitis B Vaccine (1 of 3 - 19+ 3-dose series) 1985 Pneumococcal Vaccine: 50+ (1 of 2 - PCV) 1985 CT Colonography 10/02/2011 Colonoscopy 10/02/2011 Fecal Occult Blood 10/02/2011 Prostate Cancer Screening Discussion 10/02/2011 Shingrix Vaccine (1 of 2) 2016 Cologuard (FIT-DNA) 04/22/2022 04/22/2019 Covid-19 Vaccine (3 - 2023-2 5 season) 2024 06/26/2021, 09/07/2020 Medicare Advantage Annual We llness Visit 06/04/2024 LDL Cholesterol 08/29/2024 08/30/2023 Influenza Vaccine (Season Ended) 2025 Diabetes Screening 02/18/2027 02/19/2024, 0 10/25/2022, 10/24/2022, Additional history exists Colorectal Cancer Screening 10/18/2027 Sigmoidoscopy 10/18/2027 10/17/2022 Lipid Screening 08/29/2028 08/30/2023 DTaP,Tdap,Td Vaccine (2 - Td or Tdap) 09/30/2034 09/30/2024 Procedures Procedure Name Priority Date/Time Associated Diagnosis Comments MRI OUTSIDE CD DICOM IMPORT 09/17/2024 BASIC METABOLIC PANEL Routine 10/25/2022 6:53 AM EDT SIGMOIDOSCOPY Routine 10/17/2022 12:27 PM EDT from Last 3 Months or Most Recently Relevant to Health Maintenance Results * MR-MRI LUMBAR SPINE W WO CONTRAST IMPORT (09/17/2024) Anatomical Region Laterality Modality Other 09/17/2024 Narrative 2024 1:02 PM EDT Images were obtained outside of [facility] Procedure Note Provider, f Imaging [facility] - 2024 Images were obtained outside of [facility] Ccf Provider MRI Final Result * (ABNORMAL) BASIC METABOLIC PNL (10/25/2022 6:53 AM EDT) [facility] Signature Glucose 91 74 - 99 mg/dL 10/25/2022 7:57 AM EDT [facility] Comment: The [place] Diabetes Association (ADA) provides guidance for cutoff values for fasting glucose and random glucose. The ADA defines fasting as no caloric intake for at least 8 hours. Fasting plasma glucose results between 100 to 125 mg/dL indicate increased risk for diabetes (prediabetes). Fasting plasma glucose results greater than or equal to 126 mg/dL meet the criteria for diagnosis of diabetes. In the absence of unequivocal hyperglycemia, results should be confirmed by repeat testing. In a patient with classic symptoms of hyperglycemia or hyperglycemic crisis, random plasma glucose results greater than or equal to 200 mg/dL meet the criteria for diagnosis of diabetes. Reference: Standards of Medical Care in Diabetes 2016, [place] [employer] Association. Diabetes Care. 2016.39(Suppl 1). BUN 13 9 - 24 mg/dL 10/25/2022 7:57 AM [facility] Creatinine 0.78 0.73 - 1.22 mg/dL 10/25/2022 7:57 AM [facility] Sodium 139 136 - 144 mmol/L 10/25/2022 7:57 AM [facility] Potassium 3.6(L) 3.7 - 5.1 mmol/L 10/25/2022 7:57 AM [facility] Chloride 103 97 - 105 mmol/L 10/25/2022 7:57 AM [facility] CO2 25 22 - 30 mmol/L 10/25/2022 7:57 AM [facility] Anion Gap 11 9 - 18 mmol/L 10/25/2022 7:57 AM [facility] Calcium, Total 9.3 8.5 - 10.2 mg/dL 10/25/2022 7:57 AM [facility] Estimated Glomerular Filtration Rate 105 >=60 mL/min/1. 73m 10/25/2022 7:57 AM [facility] Comment:Estimated Glomerular Filtration Rate (eGFR) is calculated using the 2020 CKD-EPI creatinine equation. This equation utilizes serum creatinine, sex, and age as parameters. The creatinine assay has traceable calibration to isotope dilution- mass spectrometry. Refer to KDIGO guidelines for clinical interpretation. In patients with unstable renal function, e.g. those with acute kidney injury, the eGFR may not accurately reflect actual GFR. Blood BLOOD SPECIMEN / Unknown Venipuncture / Unknown 10/25/2022 6:53 AM EDT 10/25/2022 7:28 AM EDT Homero Ricci MD LABORATORY Final Result [address] [address] [place] [address], * SIGMOIDOSCOPY (10/17/2022 12:27 PM EDT) Anatomical Region Laterality Modality Other 10/17/2022 12:2 7 PM EDT Narrative 10/17/2022 1:55 PM EDT [facility] Gastrointestinal Endoscopy Patient Name: Homero Rodrigues Procedure Date: 10/17/2022 12:27 PM Date of : 1965 Admit Type: Outpatient Age: 57 Room: [place] [address] Gender: Male Note Status: Finalized Attending MD: Homero Ricci MD Procedure: Flexible Sigmoidoscopy Indications: Preoperative assessment Providers: Homero Ricci MD Patient Profile: This is a 57 year old male. Refer to note in patient chart for documentation of history and physical. Last Colonoscopy: within the past 3 months. Referring Physician: Homero Ricci MD (Referring MD) Medicines: Monitored Anesthesia Care Complications: No immediate complications. Requesting Provider: Procedure: Pre-Anesthesia Assessment: - Prior to the procedure, a History and Physical was performed, and patient medications and allergies were reviewed. The patient is competent. The risks and benefits of the procedure and the sedation options and risks were discussed with the patient. All questions were answered and informed consent was obtained. Patient identification and proposed procedure were verified by the physician and the nurse in the pre-procedure area in the endoscopy suite. Mental Status Examination: alert and oriented. Airway Examination: normal oropharyngeal airway and neck mobility. ASA Grade Assessment: III - A patient with severe systemic disease. After reviewing the risks and benefits, the patient was deemed in satisfactory condition to undergo the procedure. The anesthesia plan was to use monitored anesthesia care (MAC). Immediately prior to administration of medications, the patient was re-assessed for adequacy to receive sedatives. The heart rate, respiratory rate, oxygen saturations, blood pressure, adequacy of pulmonary ventilation, and response to care were monitored throughout the procedure. The physical status of the patient was re-assessed after the procedure. After obtaining informed consent, the scope was passed under direct vision. The Colonoscope was introduced through the anus and advanced to the sigmoid colon. The flexible sigmoidoscopy was accomplished without difficulty. The patient tolerated the procedure well. The quality of the bowel preparation was good. Moderate Sedation: MAC anesthesia was administered by the anesthesia team. Total Procedure Duration: 0 hours 12 minutes 33 seconds Findings: The perianal and digital rectal examinations were normal. Many sessile polyps were found in the rectum and sigmoid colon. The polyps were small in size. These polyps were removed with a jumbo cold forceps. Polyp resection was incomplete. The resected tissue was retrieved. At least 50 polyps in the sigmoid and rectum were sampled to ensure nothing other than hyperplastic etiology Impression: - Many small polyps in the rectum and in the sigmoid colon, removed with a jumbo cold forceps. Incomplete resection. Resected tissue retrieved. Recommendation: - Continue present medications. - Discharge patient to home. - Resume previous diet. - Await pathology results. - Repeat flexible sigmoidoscopy to be determined after pathology results for surveillance. Procedure Code(s): --- Professional --- 88723, Sigmoidoscopy, flexible; with biopsy, single or multiple CPT copyright 2020 [place] [employer]. All rights reserved. The codes documented in this report are preliminary and upon death surveys coder review may be revised to meet current compliance requirements. Attending Participation: I was present and participated during the entire procedure, including non-nichols portions. Scope In: 12:42:46 PM Scope Out: 12:55:19 PM MD Homero Peña MD 10/17/2022 1:00:00 PM This report has been signed electronically by Homero Ricci MD Number of Addenda: 0 Note Initiated On: 10/17/2022 12:27 PM Estimated Blood Loss: Estimated blood loss was minimal. Homero Ricci MD DIGESTIVE DISEASE Final Result from Last 3 Months or Most Recently Relevant to Health Maintenance Insurance O Care Teams Production Supv Relationship Specialty Start Date End Date Yamilka Thomas MD [address] [place] [phone] PCP - General Family Medicine 09/14/22 Giovanni Calvert MD [address] [facility] [address] [place] [address] Primary Staff Physician Cardiology 08/20/18 Juanis Dasilva, RN Specialty Real Estate Broker Colon and Rectal Surgery 10/02/22 10/03/27 Yusef Haynes MD [address] [place] [address] [place] [address] Hematology/Oncology 11/14/22 Yamilka Thomas MD [address] [place] [address] Referring Family Medicine 09/25/24
--- OUTSIDE RECORDS SUMMARY | 2024-12-01 14:36 | XMS_ITS | Encounter Summary ---
Author Organization [facility] Address [address] [facility] [place] [address] Care Team Providers Care Software Developer Consultant Name Role Phone Yamilka Thomas DO Primary Care Provider [phone] Encounter Details Date Type Department Care Team (Late st Contact Info) Description 10/18/2022 Abstract [facility] [address] [place] [address] Obdulia Martinez RN [address] [place], [place] [id number] Social History Tobacco Use Types Packs/Day Years [...] on filedocumented in this encounter Care Teams Software Developer Consultant Relationship Specialty Start Date End Date Yamilka Thomas DO [address] [place] [phone] PCP - General Internal Medicine 10/19/22 documented as of this encounter
--- OUTSIDE RECORDS SUMMARY | 2024-12-01 14:36 | XMS_ITS | Encounter Summary ---
Author Organization [facility] Address [address] [place] [address] Phone Care Team Providers Care Lead Manufacturing Engineering Tech Name Role Phone Yamilka Thomas Primary Care Provider + Encounter Details Date Type Department Care Team (Late st Contact Info) Description 09/03/2023 Scanned Document [facility] [address] [place] [address] Scanning, Generic Provider Social History Tobacco Use Types Packs/Day Years Used Date Smoking Tobacco: Every Day Cigarettes Smokeless Tobacco: Never Alcohol Use Standard Drinks/Week Comments Never 0 (1 standard drink = 0.6 oz pur e alcohol) Sex and Gender Information Value Date Recorded Sex Assigned at Not on file Legal Sex Male 5:48 AM EST Gender Identity Not on file Sexual Orientation Not on file COVID-19 Exposure Response Date Recorded In the last 10 days, have yo u been in contact with someone who was confirmed or suspected to have Coronavirus/COVID-19? No / Unsure 08/22/2023 7:44 AM EDT documented as of this encounter Plan of Treatment Upcoming Encounters Date Type Department Care Team (Late st Contact Info) Description 07/28/2025 1:30 PM EST Office Visit [facility] [address] [facility] [address] [place] [address] Won Israel DO [address] [facility] [address] [place] [address] documented as of this encounter Procedures Procedure Name Priority Date/Time Associated Diagnosis Comments CARDIAC CATHETERIZATION PROCEDURE - ONBASE SCAN 09/03/2023 documented in this encounter Results * CARDIAC CATHETERIZATION PROCEDURE - ONBASE SCAN (09/03/2023) Narrative 09/03/2023 Ordered by an unspecified provider. us Generic Provider Scanning CV CARDIAC CATH PROCED URES Final Result documented in this encounter Visit Diagnoses Not on filedocumented in this encounter Care Teams Lead Manufacturing Engineering Tech Relationship Specialty Start Date End Date Yamilka Thomas DO [address] [place] [address] PCP - General 06/26/19 documented as of this encounter
--- OUTSIDE RECORDS SUMMARY | 2024-12-01 14:36 | XMS_ITS | Clinical Summary ---
Author Organization [facility] Address [address] [place] [address] Phone Care Team Providers Care Exposure Machine Operator Name Role Phone Yamilka Thomas DO Primary Care Provider + Allergies Active Allergy Reactions Criticality Noted Date Comments Penicillins Hives 05/22/2023 Medications sildenafil (Viagra) 25 mg tablet Take 1 tablet (25 mg) by mouth if needed. Active aspirin 81 mg EC tablet Take 1 tablet (81 mg) by mouth once daily. Active pantoprazole (Protonix) 40 mg EC tablet Take 1 tablet (40 mg) by mouth once daily. Active cyclobenzaprine (Flexeril) 10 mg tablet Take 1 tablet (10 mg) by mouth once daily at bedtime. Active vilazodone (Viibryd) 20 mg tablet Take 1 tablet (20 mg) by mouth once daily. Active nitroglycerin (Nitrostat) 0.[address] under the tongue. 12/09/2021 Active pramipexole (Mirapex) 0.75 mg tablet Take 1 tablet (0.75 mg) by mouth early in the morning.. Active albuterol 90 mcg/actuation aerosol powdr breath activated inhaler Inhale 2 puffs every 4 hours. Active potassium chloride CR 20 mEq ER tablet Take 1 tablet (20 mEq) by mouth once daily. Do not crush or chew. Active atorvastatin (Lipitor) 40 mg tabletIndication s:Hyperlipidemia , unspecified Take 1 tablet (40 mg) by mouth once daily at bedtime. 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 180 tablet 3 07/16/2024 Active clopidogrel (Plavix) 75 mg tabletIndication s:ASHD (arterioscleroti c heart disease),History of PTCA Take 1 tablet (75 mg) by mouth once daily. 90 tablet 3 07/16/2024 Active valsartan (Diovan) 160 mg tabletIndication s:ASHD (arterioscleroti c heart disease),Essenti al hypertension, benign Take 1 tablet (160 mg) by mouth once daily. 90 tablet 3 07/16/2024 Active furosemide (Lasix) 20 mg tablet Take 1 tablet (20 mg) by mouth once daily. Active Active Problems Problem Noted Date Diagnosed Date BMI 30.0-30.9,adult 07/16/2024 Edema 04/09/2024 Syncope and collapse 07/25/2023 Assessment & Plan (07/26/2023 4:05 PM EST): Reports he had been standing greater than 5 minutes eating cereal Prodrome: Less than 5 seconds of little dizzy . Tried to walk to put the milk away. LOC: Sustained head injury, Witnessed by father. No loss of bowel or bladder function Recovery: Extensive, does not remember the EMS ride. Woke up in the ER greater than 30 minutes. Denies any type of diaphoresis or flushing. Reports following the emergency department he was really dizzy and could not stand . Presented with a potassium of 2.9, hydrochlorothiazide has been discontinued. Standing blood pressure in the office 148/80. In retrospect, he reports 2 other episodes of dizziness if he stood up too fast . On the morning of event he denies any alcohol, he did not take his Flexeril. EKG in an ER sinus rhythm, QTc 425 He did have recent URI symptoms but denied any [id number] medications. Episode seems most consistent with a vasovagal episode (prolonged recovery) or perhaps arrhythmia due to hypokalemia then recovery was extended due to head injury. Prior complaints of dizziness really not consistent with vertigo, always are postural in nature. BMI 29.0-29.9,adult 06/13/2023 Assessment & Plan (10/31/2023 10:23 AM EDT): Reviewed the merits of healthy lifestyle choices on overall cardiovascular health. Assessment & Plan (07/26/2023 3:55 PM EST): Reviewed the merits of healthy lifestyle choices on overall cardiovascular health. Assessment & Plan (06/13/2023 1:07 PM EST): Reviewed the merits of healthy lifestyle choices on overall cardiovascular health. Malignant neoplasm of ascending colon (Multi) Assessment & Plan (06/13/2023 1:05 PM EST): Reports a October 2021 colon resection at [facility]. No planned chemo or radiation Dyspnea 06/12/2023 Assessment & Plan (06/13/2023 1:06 PM EST): Reports dyspnea on exertion and at rest with audible wheezing. Continued every day smoker Faint inspiratory wheezing on exam Reports PFTs completed greater than 5 years ago and told that he had COPD ; currently no inhaler treatment. Agrees to testing and referral to Dr. Stefanie [place] (arteriosclerotic heart disease) 05/22/2023 Assessment & Plan (10/31/2023 10:22 AM EDT): Jul 2020 mRCA PCI/Braggs 4/38mm Diag 80% - plans at that time observe for recurrent symptoms August 2023: Abnormal MPI. September 03, 2023 elective cardiac cath and subsequent coronary intervention Ostial diagonal/proximal LAD PCI/Yoseph 2.5 x 26 mm and 3.0 x 12 mm Proximal/mid LAD patent stent Mid RCA patent stent Assessment & Plan (07/26/2023 3:55 PM EST): Jul 2020 mRCA PCI/Yoseph 4/38mm Diag 80% - plans at that time observe for recurrent symptoms November 2021 GXT no ischemia at 10 METS Current daily activity greater than 4 METS without concerning symptoms Assessment & Plan (06/13/2023 1:04 PM EST): Jul 2020 mRCA PCI/Braggs 4/38mm Diag 80% - plans at that time observe for recurrent symptoms November 2021 GXT no ischemia at 10 METS Current daily activity greater than 4 METS without concerning symptoms Chest pain 05/22/2023 Current every day smoker 05/22/2023 Assessment & Plan (10/30/2023 3:22 PM EDT): Cutting back Less than a pack a day Has nicoderm patches Continued every day tobacco use. Have reviewed the negative cardiovascular impact of nicotine. Continues to decline pharmacological assistance. Assessment & Plan (07/25/2023 2:23 PM EST): Maybe one pack per day Continued every day tobacco use. Have reviewed the negative cardiovascular impact of nicotine. Continues to decline pharmacological assistance. Assessment & Plan (06/13/2023 1:06 PM EST): Currently down to half pack a day Reports trying to quit with NicoDerm patches Essential hypertension, benign 05/22/2023 Assessment & Plan (10/31/2023 10:22 AM EDT): Optimal in office Assessment & Plan (07/26/2023 3:55 PM EST): Elevated in the office Assessment & Plan (06/13/2023 1:04 PM EST): Optimal in office History of PTCA 05/22/2023 Hyperlipidemia 05/22/2023 Assessment & Plan (10/31/2023 10:23 AM EDT): Moderate intensity statin August 2020 LDL 89, HDL 41 Assessment & Plan (07/26/2023 3:55 PM EST): Moderate intensity statin Managed by Dr. Nolasco will need repeat lipid profile this year Assessment & Plan (06/13/2023 1:05 PM EST): Moderate intensity statin Managed by Dr. Nolasco will need repeat lipid profile this year Encounters Date Type Department Care Team Description 11/18/[address] [phone] Audelia Fierro LPN edema from Last 3 Months Immunizations Immunization Administration Dates Next Due Orion SARS-CoV-2 Vaccination 09/07/2020 Family History Medical History Relation Name Comments Diabetes type I Father cardiac disorder Father cardiac disorder Mother Relation Name Status Comments Father Mother Social History Tobacco Use Types Packs/Day Years Used Date Smoking Tobacco: Every Day Cigarettes Smokeless Tobacco: Never Tobacco Cessation:Ready to Q uit: Yes; Counseling Given: Yes Alcohol Use Standard Drinks/Week Comments Yes 0 (1 standard drink = 0.6 oz pur e alcohol) occasionally Sex and Gender Information Value Date Recorded Sex Assigned at Not on file Legal Sex Male 5:48 AM EST Gender Identity Not on file Sexual Orientation Not on file Last Filed Vital Signs Vital Sign Reading Time Taken Comments Blood Pressure 98/54 07/16/2024 9:02 AM EST Pulse 72 07/16/2024 9:02 AM EST Temperature - - Respiratory Rate - - Oxygen Saturation - - Inhaled Oxygen Concentration - - Weight 84.4 kg (186 lb) 07/16/2024 9:02 AM EST Height 167.6 cm (5' 6 ) 07/16/2024 9:02 AM EST Body Mass Index 30.02 07/16/2024 9:02 AM EST Plan of Treatment Upcoming Encounters Date Type Department Care Team (Late st Contact Info) Description 07/28/2025 1:30 PM EST Office Visit [address] [phone] Won Israel DO [address] [facility] 2, [facility] [address] [place], [place] [id number] Health Maintenance Due Date Last Done Comments Creatinine Level 1965 HIV Screening 1965 Lipid Panel 1965 Medicare Annual Wellness Vis it (AWV) 1966 Potassium Level 1966 MMR Vaccines (1 of 1 - Standard series) 10/02/1967 Diabetes Screening 1984 Hepatitis C Screening 1984 Hepatitis B Vaccines (1 of 3 - 19+ 3-dose series) 1985 Pneumococcal Vaccine (1 of 2 - PCV) 1985 DTaP/Tdap/Td Vaccines (1 - Tdap) 1988 Zoster Vaccines (1 of 2) 2016 COVID-19 Vaccine (3 - 2023-2 5 season) 2024 06/26/2021, 09/07/2020 Echocardiogram 08/21/2024 08/22/2023, 06/26/2019, 06/26/2019 Influenza Vaccine (Season Ended) 2025 Colonoscopy Discontinued 08/30/2022 Colorectal Cancer Screening Discontinued Irritable Bowel Syndrome Discontinued 10/17/2022 Sigmoidoscopy Discontinued 10/17/2022, 10/17/2022 CT Colonography Discontinued FIT-DNA (Cologuard) Discontinued FIT Discontinued HIB Vaccines Aged Out No longer eligi ble based on patient's age to complete this topic HPV Vaccines (No Doses Required) Completed Hepatitis A Vaccines Aged Out No long er eligible based on patient's age to complete this topic IPV Vaccines Aged Out No longer eligi ble based on patient's age to complete this topic Meningococcal Vaccine Aged Out No sylvia mónica eligible based on patient's age to complete this topic Rotavirus Vaccines Aged Out No longer eligible based on patient's age to complete this topic Procedures Procedure Name Priority Date/Time Associated Diagnosis Comments TRANSTHORACIC ECHO (TTE) COMPLETE Routine 08/22/2023 8:37 AM EDT Syncope and collapse ASHD (arteriosclerotic heart disease) Essential hypertension, benign from Last 3 Months or Most Recently Relevant to Health Maintenance Results * TRANSTHORACIC ECHO (TTE) COMPLETE (08/22/2023 8:37 AM EDT) AV mn grad 4.0 mmHg SYNGO AV pk kendrick 1.38 m/s SYNGO LVOT diam 2.30 cm SYNGO MV E/A ratio 0.74 SYNGO MV avg E/e' ratio 9.30 SYNGO RVSP 16.1 mmHg SYNGO LVIDd 4.00 cm SYNGO Aortic Valve Area by Continuity of Peak Velocity 3.04 cm2 SYNGO AV pk grad 7.6 mmHg SYNGO Aortic Valve Area by Continuity of VTI 3.42 cm2 SYNGO LV A4C EF 64.8 SYNGO 08/22/2023 8:11 AM EDT Narrative SYNGO - 08/23/2023 4:15 PM EDT [address], [address], [place] [address] TRANSTHORACIC ECHOCARDIOGRAM REPORT Patient Name: JERRELL Chew Physician: [id number] Won Johnson MD Study Date: 08/22/2023 Ordering Provider: [id number] HIEU DASILVA MRN/PID: [id number] Fellow: Nurse: Date of /Age: 4 1965 / 57 years Barometers Calibrator: Marva Soto RDCS, RVT Gender: M Additional Staff: Height: 167.64 cm Admit Date: Weight: 78.47 kg Admission Status: BSA / BMI: 1.88 m2 / 27.92 kg/m2 Department Location: [facility] Blood Pressure: 154 /82 mmHg Study Type: TRANSTHORACIC ECHO (TTE) COMPLETE Diagnosis/ICD: Syncope and collapse-R55; Atherosclerotic heart disease of [place] coronary artery without angina pectoris-I25.10; Essential (primary) hypertension-I10 Indication: Hyperlipidemia, PTCA-07/2020, Tobacco Abuse, Dizziness, History of Colon Cancer CPT Codes: Echo Complete w Full [id number] Study Detail: The following Echo studies were performed: 2D, M-Mode, Doppler and color flow. PHYSICIAN INTERPRETATION: Left Ventricle: Left ventricular systolic function is normal, with an estimated ejection fraction of 65%. There are no regional wall motion abnormalities. The left ventricular cavity size is normal. There is mild concentric left ventricular hypertrophy. Spectral Doppler shows a normal pattern of left ventricular diastolic filling. Left Atrium: The left atrium is mild to moderately dilated. Right Ventricle: The right ventricle is upper limits of normal in size. There is normal right ventricular global systolic function. Right Atrium: The right atrium is normal in size. Aortic Valve: The aortic valve is trileaflet. There is evidence of mildly elevated transaortic gradients consistent with sclerosis of the aortic valve. There is no evidence of aortic valve regurgitation. The peak instantaneous gradient of the aortic valve is 7.6 mmHg. The mean gradient of the aortic valve is 4.0 mmHg. Mitral Valve: The mitral valve is normal in structure. There is no evidence of mitral valve regurgitation. Tricuspid Valve: The tricuspid valve is structurally normal. There is trace tricuspid regurgitation. Pulmonic Valve: The pulmonic valve is not well visualized. There is trace pulmonic valve regurgitation. Pericardium: There is no pericardial effusion noted. Aorta: The aortic root is normal. CONCLUSIONS: 1. Left ventricular systolic function is normal with a 65% estimated ejection fraction. 2. The left atrium is mild to moderately dilated. 3. Aortic valve sclerosis. QUANTITATIVE DATA SUMMARY: 2D MEASUREMENTS: Normal Ranges: Ao Root d: 3.00 cm (2.0-3.7cm) LAs: 3.70 cm (2.7-4.0cm) RVIDd: 3.00 cm (0.9-3.6cm) IVSd: 1.30 cm (0.6-1.1cm) LVPWd: 1.20 cm (0.6-1.1cm) LVIDd: 4.00 cm (3.9-5.9cm) LVIDs: 2.50 cm LV Mass Index: 93.5 g/m2 LV % FS 37.5 % LV SYSTOLIC FUNCTION BY 2D PLANIMETRY (MOD): Normal Ranges: EF-A4C View: 64.8 % (>=55%) LV DIASTOLIC FUNCTION: Normal Ranges: MV Peak E: 0.71 m/s (0.7-1.2 m/s) MV Peak A: 0.96 m/s (0.42-0.7 m/s) E/A Ratio: 0.74 (1.0-2.2) MV lateral e' 0.08 m/s MV medial e' 0.05 m/s E/e' Ratio: 9.30 (<8.0) MITRAL VALVE: Normal Ranges: MV Vmax: 1.01 m/s (<=1.3m/s) MV peak P.1 mmHg (<5mmHg) MV mean P.0 mmHg (<48mmHg) AORTIC VALVE: Normal Ranges: AoV Vmax: 1.38 m/s (<=1.7m/s) AoV Peak P.6 mmHg (<20mmHg) AoV Mean P.0 mmHg (1.7-11.5mmHg) LVOT Max Kendrick: 1.01 m/s (<=1.1m/s) AoV VTI: 26.10 cm (18-25cm) LVOT VTI: 21.50 cm LVOT Diameter: 2.30 cm (1.8-2.4cm) AoV Area, VTI: 3.42 cm2 (2.5-5.5cm2) AoV Area,Vmax: 3.04 cm2 (2.5-4.5cm2) AoV Dimensionless Index: 0.82 TRICUSPID VALVE/RVSP: Normal Ranges: Peak TR Velocity: 1.81 m/s RV Syst Pressure: 16.1 mmHg (< 30mmHg) PULMONIC VALVE: Normal Ranges: PV Max Kendrick: 0.6 m/s (0.6-0.9m/s) PV Max P.4 mmHg [id number] Won Johnson MD Electronically signed on 08/23/2023 at 4:15:11 PM Final Procedure Note Won Johnson MD - 08/23/[address], [place] [address] TRANSTHORACIC ECHOCARDIOGRAM REPORT Patient Name: JERRELL Chew Physician: [id number] LynnD Study Date: 08/22/2023 Ordering Provider: [id number] TANJA DASILVA MRN/PID: [id number] Fellow: Nurse: Date of /Age: 4 1965 / 57 years Barometers Calibrator: Win CONTRERAS, RVT Gender: M Additional Staff: Height: 167.64 cm Admit Date: Weight: 78.47 kg Admission Status: BSA / BMI: 1.88 m2 / 27.92 kg/m2 Department Location: [facility] Blood Pressure: 154 /82 mmHg Study Type: TRANSTHORACIC ECHO (TTE) COMPLETE Diagnosis/ICD: Syncope and collapse-R55; 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 PHYSICIAN INTERPRETATION: Left Ventricle: Left ventricular systolic function is normal, with anestimated ejection fraction of 65%. There are no regional wall motionabnormalities. The left ventricular cavity size is normal. There is mildconcentric left ventricular hypertrophy. Spectral Doppler shows a normalpattern of left ventricular diastolic filling. Left Atrium: The left atrium is mild to moderately dilated. Right Ventricle: The right ventricle is upper limits of normal in size.There is normal right ventricular global systolic function. Right Atrium: The right atrium is normal in size. Aortic Valve: The aortic valve is trileaflet. There is evidence of mildlyelevated transaortic gradients consistent with sclerosis of the aorticvalve. There is no evidence of aortic valve regurgitation. The peak instantaneousgradient of the aortic valve is 7.6 mmHg. The mean gradient of the aorticvalve is 4.0 mmHg. Mitral Valve: The mitral valve is normal in structure. There is noevidence of mitral valve regurgitation. Tricuspid Valve: The tricuspid valve is structurally normal. There istrace tricuspid regurgitation. Pulmonic Valve: The pulmonic valve is not well visualized. There is tracepulmonic valve regurgitation. Pericardium: There is no pericardial effusion noted. Aorta: The aortic root is normal. CONCLUSIONS: 1. Left ventricular systolic function is normal with a 65% estimatedejection fraction. 2. The left atrium is mild to moderately dilated. 3. Aortic valve sclerosis. QUANTITATIVE DATA SUMMARY: 2D MEASUREMENTS: Normal Ranges: Ao Root d: 3.00 cm (2.0-3.7cm) LAs: 3.70 cm (2.7-4.0cm) RVIDd: 3.00 cm (0.9-3.6cm) IVSd: 1.30 cm (0.6-1.1cm) LVPWd: 1.20 cm (0.6-1.1cm) LVIDd: 4.00 cm (3.9-5.9cm) LVIDs: 2.50 cm LV Mass Index: 93.5 g/m2 LV % FS 37.5 % LV SYSTOLIC FUNCTION BY 2D PLANIMETRY (MOD): Normal Ranges: EF-A4C View: 64.8 % (>=55%) LV DIASTOLIC FUNCTION: Normal Ranges: MV Peak E: 0.71 m/s (0.7-1.2 m/s) MV Peak A: 0.96 m/s (0.42-0.7 m/s) E/A Ratio: 0.74 (1.0-2.2) MV lateral e' 0.08 m/s MV medial e' 0.05 m/s E/e' Ratio: 9.30 (<8.0) MITRAL VALVE: Normal Ranges: MV Vmax: 1.01 m/s (<=1.3m/s) MV peak P.1 mmHg (<5mmHg) MV mean P.0 mmHg (<48mmHg) AORTIC VALVE: Normal Ranges: AoV Vmax: 1.38 m/s (<=1.7m/s) AoV Peak P.6 mmHg (<20mmHg) AoV Mean P.0 mmHg (1.7-11.5mmHg) LVOT Max Kendrick: 1.01 m/s (<=1.1m/s) AoV VTI: 26.10 cm (18-25cm) LVOT VTI: 21.50 cm LVOT Diameter: 2.30 cm (1.8-2.4cm) AoV Area, VTI: 3.42 cm2 (2.5-5.5cm2) AoV Area,Vmax: 3.04 cm2 (2.5-4.5cm2) AoV Dimensionless Index: 0.82 TRICUSPID VALVE/RVSP: Normal Ranges: Peak TR Velocity: 1.81 m/s RV Syst Pressure: 16.1 mmHg (< 30mmHg) PULMONIC VALVE: Normal Ranges: PV Max Kendrick: 0.6 m/s (0.6-0.9m/s) PV Max P.4 mmHg [id number] Won Johnson MD Electronically signed on 08/23/2023 at 4:15:11 PM Final Hieu Dasilva MAGNETIC PROSPECTING SUPERVISOR-METALLURGICAL OR MATERIALS TECHNICIAN CV ECHO PROCEDURES Final Result SYNGO from Last 3 Months or Most Recently Relevant to Health Maintenance Insurance Rudder Rudder Care Teams Exposure Machine Operator Relationship Specialty Start Date End Date Yamilka Thomas DO [address] [place] [phone] PCP - General 06/26/19
--- OUTSIDE RECORDS SUMMARY | 2024-12-01 14:36 | XMS_ITS | Encounter Summary ---
Author Organization [facility] Address [address] [facility] [place] [address] Care Team Providers Care Restaurant Line Server Name Role Phone Yamilka Thomas DO Primary Care Provider [phone] Encounter Details Date Type Department Care Team (Late st Contact Info) Description 10/18/2022 Abstract [facility] [address] [place] [address] Obdulia Martinez, ANNA [address] [place], [place] [phone] Social History Tobacco Use Types Packs/Day Years Used Date Smoking Tobacco: Never Assessed Tobacco Cessation:Counseling Given: Not Answered Sex and Gender Information Value Date Recorded Sex Assigned at Not on file Legal Sex Male 6:35 PM EDT Gender Identity Not on file Sexual Orientation Not on file documented as of this encounter Plan of Treatment Not on file documented as of this encounter Visit Diagnoses Not on filedocumented in this encounter Care Teams Restaurant Line Server Relationship Specialty Start Date End Date Yamilka Thomas DO [address] [place] [phone] PCP - General Internal Medicine 10/19/22 documented as of this encounter
--- OUTSIDE RECORDS SUMMARY | 2024-12-01 14:36 | XMS_ITS | Encounter Summary ---
Author Organization [facility] Address [address] [place] [address] Phone Care Team Providers Care Equalizing Saw Operator Name Role Phone Yamilka Thomas DO Primary Care Provider + Encounter Details Date Type Department Care Team (Late st Contact Info) Description 08/24/2021 Orders Only [facility] [address] [place] [address] Conversion, Onbase Social History Tobacco Use Types [...] Description 07/28/2025 1:30 PM EST Office Visit [facility] [address] [facility] [address] [place] [phone] Won Israel DO [address] [facility] [address], [address] [place], [place] [phone] Scheduled Orders Name Type Priority Associated Diagnoses Orde r Schedule OUTSIDE LAB SCAN Lab Ordered: 08/24/2021 documented as of this encounter Visit Diagnoses Not on filedocumented in this encounter Care Teams Equalizing Saw Operator Relationship Specialty Start Date End Date Yamilka Thomas DO [address] [place] [phone] PCP - General 06/26/19 documented as of this encounter
--- OUTSIDE RECORDS SUMMARY | 2024-12-01 14:36 | XMS_ITS | Encounter Summary ---
Author Organization [facility] Address [address] [place] [address] Phone Care Team Providers Care Third Cook Name Role Phone Yamilka Thomas DO Primary Care Provider + Encounter Details Date Type Department Care Team (Late st Contact Info) Description 07/14/2023 Scanned Document [facility] [address] [place] [phone] Scanning, Generic Provider Social History Tobacco Use [...] Description 07/28/2025 1:30 PM EST Office Visit [facility] [address] [facility] [address] [place] [address] Won Israel DO [facility], [address] [place], [place] [phone] documented as of this encounter Visit Diagnoses Not on filedocumented in this encounter Care Teams Third Cook Relationship Specialty Start Date End Date Yamilka Thomas DO [address] [place] [phone] PCP - General 06/26/19 documented as of this encounter
--- OUTSIDE RECORDS SUMMARY | 2024-12-01 14:36 | XMS_ITS | Encounter Summary ---
Author Organization [facility] Address [address] [place] [address] Phone Care Team Providers Care Satellite Installation Technician Name Role Phone Yamilka Thomas DO Primary Care Provider + Reason for Visit * Reason Onset Date Comments edema 11/18/2024 Encounter Details Date Type Department Care Team (Late st Contact Info) Description 11/18/[address] [phone] Milana Linares LPN edema Social History Tobacco Use Types Packs/Day Years [...] on file documented as of this encounter Miscellaneous Notes * Telephone Encounter - Dianelys Ag LPN - 11/19/2024 1:23 PM EDT Faxed. * Addendum Note - Milana Linares LPN - 11/19/2024 9:51 AM EDTAddended by: MILANA LINARES on: 11/19/2024 09:51 AM Modules accepted: Orders * Telephone Encounter - Milana Linares LPN - 11/19/2024 9:49 AM EDT Phoned patient orders discussed verbalized understanding. Has follow up with PCP 11/19/24. Labs to be faxed to [facility] once signed. * Telephone Encounter - Milana Linares LPN - 11/18/2024 1:48 PM EDT Patient phoned states he has been having lower leg edema, left side greater than right. PCP initiated furosemide 20mg daily 08/2024. Patient states he has noticed much difference since starting med. Inquiring about sooner OV or medication changes to address. Denies having cardiac complaints. To Dr. Won Israel DO for review. documented in this encounter Plan of Treatment Upcoming Encounters Date Type Department Care Team (Late st Contact Info) Description 07/28/2025 1:30 PM EST Office Visit [facility] [address] [facility] [address] [place] [phone] Won Israel DO [address] [place] [address] 2, [facility] [address] [place] [address] Scheduled Orders Name Type Priority Associated Diagnoses Orde r Schedule Basic Metabolic Panel Lab Routine Edema, unspecified type Expected: 11/19/2024, Expires: 11/19/2025 B-Type Natriuretic Peptide Lab Routine Edema, unspecified type ACC/AHA stage C acute systolic heart failure (Multi) Expected: 11/19/2024, Expires: 11/19/2025 documented as of this encounter Visit Diagnoses Diagnosis Edema, unspecified type ACC/AHA stage C acute systolic heart failure documented in this encounter Additional Health Concerns Assessment Noted Time A fall risk assessment has been complete d for the patient 07/16/2024 8:58 AM EST documented as of this encounter Care Teams Satellite Installation Technician Relationship Specialty Start Date End Date Yamilka Thomas DO [address] [place] [phone] PCP - General 06/26/19 documented as of this encounter
--- OUTSIDE RECORDS SUMMARY | 2024-12-01 14:36 | XMS_ITS | Encounter Summary ---
Author Organization [facility] Address [address] [place] [address] Phone Care Team Providers Care Rock Contractor Name Role Phone Yamilka Thomas DO Primary Care Provider + Encounter Details Date Type Department Care Team (Late st Contact Info) Description 08/08/2021 Orders Only [facility] [address] [place] [address] Conversion, Onbase Social History Tobacco Use Types [...] Description 07/28/2025 1:30 PM EST Office Visit [facility] [address] [facility] [address] [place] [phone] Won Israel DO [address] [facility] [address] [place] [address] Scheduled Orders Name Type Priority Associated Diagnoses Orde r Schedule OUTSIDE LAB SCAN Lab Ordered: 08/08/2021 documented as of this encounter Visit Diagnoses Not on filedocumented in this encounter Care Teams Rock Contractor Relationship Specialty Start Date End Date Yamilka Thomas DO [address] [place] [phone] PCP - General 06/26/19 documented as of this encounter
--- OUTSIDE RECORDS SUMMARY | 2024-12-01 14:36 | XMS_ITS | Encounter Summary ---
Author Organization [facility] Address [address] [place] [address] Phone Care Team Providers Care Dispatcher Relay Name Role Phone Yamilka Thomas DO Primary Care Provider + Encounter Details Date Type Department Care Team (Late st Contact Info) Description 01/13/2022 Orders Only [facility] [address] [place] [address] Conversion, Onbase Social History Tobacco Use Types [...] Description 07/28/2025 1:30 PM EST Office Visit [facility] [address] [facility] [address] [place] [phone] Won Israel DO [address] [facility] [address], [address] [place] [address] Scheduled Orders Name Type Priority Associated Diagnoses Orde r Schedule OUTSIDE LAB SCAN Lab Ordered: 01/13/2022 documented as of this encounter Visit Diagnoses Not on filedocumented in this encounter Care Teams Dispatcher Relay Relationship Specialty Start Date End Date Yamilka Thomas DO [address] [place] [phone] PCP - General 06/26/19 documented as of this encounter
--- OUTSIDE RECORDS SUMMARY | 2024-12-01 14:36 | XMS_ITS | Encounter Summary ---
Author Organization [facility] Address [address] [place] [address] Phone Care Team Providers Care Gravel Inspector Name Role Phone Yamilka Thomas DO Primary Care Provider + Encounter Details Date Type Department Care Team (Late st Contact Info) Description 09/07/2022 Orders Only [facility] [address] [place] [address] Conversion, Onbase Social History Tobacco Use Types [...] Description 07/28/2025 1:30 PM EST Office Visit [facility] [address] [facility] [address] [place] [phone] Won Israel DO [address] [facility] [address], [address] [place] [address] Scheduled Orders Name Type Priority Associated Diagnoses Orde r Schedule OUTSIDE LAB SCAN Lab Ordered: 09/07/2022 documented as of this encounter Visit Diagnoses Not on filedocumented in this encounter Care Teams Gravel Inspector Relationship Specialty Start Date End Date Yamilka Thomas DO [address] [place] [phone] PCP - General 06/26/19 documented as of this encounter
== END 2024-12-01 14:31 | disposition home or self-care (01) ==
LOC: LAB 14:33
PROVIDERS: PCP Student in an Organized Health Care Education/Training Program; Visit Provider Internal Medicine Cardiovascular Disease
DX: R60.9 Edema, unspecified (principal); I50.21 Acute systolic (congestive) heart failure
CPT/HCPCS: 36415; 83880